=== PATIENT | female | born 1940 | race Caucasian/White ===

== ENCOUNTER → 2017-07-30 | Outpatient (CLI) | payer MEDICARE, BC ==
[2017-07-30 16:01] LABS: CH 28.2; CHCM 31.4; HCT 48.2 % (34.0-46.0); HDW 2.26; HGB 14.9 gm/dL (11.4-16.0); MCHC 30.9 g/dL (31.0-37.0); MCV 90.4 fL (80.0-100.0); Mean Platelet Volume 7.4; RBC 5.33 m/uL (3.80-5.40); RDW 12.9 % (11.5-15.5); WBC 7.5 k/uL (3.8-10.6)
[2017-07-30 16:26] LABS: ALT 35 U/L (9-52); AST 18 U/L (14-36); Alkaline Phosphatase 76 U/L (38-126); Anion Gap 11 mmol/L; Blood Urea Nitrogen 14 mg/dL (7-17); Calcium 9.7 mg/dL (8.4-10.2); Carbon Dioxide 28 mmol/L (22-30); Chloride 100 mmol/L (98-107); Glucose 124 mg/dL (74-99); Non-African American GFR(MDRD) >60 (>60 ml/min/1.73 sqM); Potassium 4.7 mmol/L (3.5-5.1); Sodium 139 mmol/L (137-145); Total Bilirubin 0.6 mg/dL (0.2-1.3); Total Protein 7.3 g/dL (6.3-8.2)
== END | disposition home or self-care (01) ==
LOC: LABWHC1 14:31
PROVIDERS: ATTEND Internal Medicine
DX: E55.9 Vitamin D deficiency, unspecified (principal); E03.9 Hypothyroidism, unspecified; I10 Essential (primary) hypertension
CPT/HCPCS: 36415; 80053; 82306; 84443; 85027

== ENCOUNTER → 2018-12-29 | Outpatient (CLI) | payer MEDICARE | END | disposition home or self-care (01) | LOC: LABWHC1 11:32 | PROVIDERS: ATTEND Physician Assistant | DX: S92.514A Nondisplaced fracture of proximal phalanx of right lesser toe(s), initial encounter for closed fracture (principal); M79.671 Pain in right foot | CPT/HCPCS: 36415; 82306 ==

== ENCOUNTER → 2019-10-13 | Outpatient (CLI) | payer MEDICARE ==
[2019-10-13 12:28] LABS: HCT 46.2 % (34.0-46.0); HGB 14.5 gm/dL (11.4-16.0); MCH 27.7 pg (25.0-35.0); MCHC 31.3 g/dL (31.0-37.0); MCV 88.6 fL (80.0-100.0); Mean Platelet Volume 8.1; Platelet Count 245 k/uL (150-450); RBC 5.21 m/uL (3.80-5.40); RDW 13.2 % (11.5-15.5); WBC 7.4 k/uL (3.8-10.6)
[2019-10-13 19:02] LABS: African American GFR (CKD) 81.8 (60.0-200.0); Albumin 4.4 g/dL (3.80-4.90); Albumin/Globulin Ratio 2.1 (1.60-3.17); Anion Gap 7.1 mmol/L (4.00-12.00); BUN/Creat Ratio 17.5 Ratio (12.00-20.00); Calcium 9.6 mg/dL (8.7-10.3); Carbon Dioxide 27.9 mmol/L (21.6-31.8); Chol/HDL Ratio 3.33; Globulin 2.1 g/dL (1.6-3.3); LDL Cholesterol,Calculated 106.2 mg/dL (0.0-131.0); Non-African American GFR(CKD) 70.6 (60.0-200.0); Potassium 4.1 mmol/L (3.5-5.5); Total Bilirubin 0.6 mg/dL (0.2-1.2); Total Protein 6.5 g/dL (6.2-8.2); VLDL Calculation 19.8 mg/dL (5.00-40.00)
== END | disposition home or self-care (01) ==
LOC: LABWHC1 11:40
PROVIDERS: ATTEND Internal Medicine
DX: I10 Essential (primary) hypertension (principal); E03.9 Hypothyroidism, unspecified; E55.9 Vitamin D deficiency, unspecified
CPT/HCPCS: 36415; 80053; 80061; 82306; 84443; 85027

== ENCOUNTER 2019-11-07 19:22 | Emergency (ER) | payer MEDICARE ==
--- NOTE | 2019-11-07 19:48 | ED ---
General Adult HPI - General Chief complaint: Dizziness Stated complaint: Dizziness Time Seen by Provider: 11/07/19 19:47 Source: patient, family Mode of arrival: wheelchair Limitations: no limitations - History of Present Illness Initial comments: Patient presents the ED with her son for evaluation. Patient states that she has a history of vertigo, and she states that she has felt dizzy for the past 4 days ago. Patient states that her dizziness began suddenly after rolling over in bed. Patient states that her dizziness is worse with movement and changes in position. Patient also states that she has been nauseated. Patient states that she has had a posterior headache today as well. Patient also states that she feels quite anxious. Patient denies trauma or injury, sudden onset of headache, LOC, neck pain or stiffness, fever or chills, focal numbness/weakness/neuro deficit, visual changes, speech problems, chest pain, dyspnea, palpitations, syncope, abdominal pain, nausea/vomiting/diarrhea, bloody or melanotic stool, dysuria or urinary symptoms, or any other symptoms or complaints. - Related Data Home Medications Medication Instructions Recorded Confirmed Aspirin EC [Ecotrin Low Dose] 81 mg PO DAILY PRN 08/19/17 08/19/17 Ergocalciferol (Vitamin D2) 50,000 unit PO HAAS 08/19/17 08/19/17 [Vitamin D2] Lisinopril [Zestril] 20 mg PO BID 08/19/17 08/19/17 Omeprazole [PriLOSEC] 40 mg PO DAILY 08/19/17 08/19/17 Previous Rx's Medication Instructions Recorded Meclizine [Antivert] 25 mg PO TID PRN #12 tab 11/08/19 Ondansetron Odt [Zofran ODT] 4 mg PO Q8HR PRN #10 tab 11/08/19 Allergies Allergy/AdvReac Type Severity Reaction Status Date / Time iodine Allergy Rash/Hives Verified 11/07/19 19:31 Sulfa (Sulfonamide Allergy Rash/Hives Verified 11/07/19 19:31 Antibiotics) Review of Systems ROS Statement: Those systems with pertinent positive or pertinent negative responses have been documented in the HPI. ROS Other: All systems not noted in ROS Statement are negative. Past Medical History Past Medical History: GERD/Reflux, Hypertension, Osteoarthritis (OA) Additional Past Medical History / Comment(s): vitamin D Deficiency, Anemia History of Any Multi-Drug Resistant Organisms: None Reported Past Surgical History: Hysterectomy Past Psychological History: Anxiety Smoking Status: Never smoker Past Alcohol Use History: None Reported Past Drug Use History: None Reported General Exam Limitations: no limitations General appearance: alert, in no apparent distress Head exam: Present: atraumatic, normocephalic Eye exam: Present: normal appearance, PERRL, EOMI. Absent: nystagmus ENT exam: Present: mucous membranes moist Neck exam: Present: other (Trachea is in midline). Absent: tenderness, meningismus Respiratory exam: Present: normal lung sounds bilaterally. Absent: respiratory distress, wheezes, rales, rhonchi Cardiovascular Exam: Present: regular rate, normal rhythm, normal heart sounds, other (Normal radial pulses bilaterally) GI/Abdominal exam: Present: soft. Absent: distended, tenderness Extremities exam: Present: full ROM. Absent: tenderness, pedal edema, calf tenderness Neurological exam: Present: alert, oriented X3, CN II-XII intact. Absent: motor sensory deficit Psychiatric exam: Present: anxious Skin exam: Present: warm, dry, intact, normal color Course Vital Signs 11/07/19 11/07/19 11/07/19 19:31 21:22 21:32 Temperature 98.4 F Pulse Rate 111 H 93 90 Respiratory 16 16 18 Rate Blood Pressure 187/119 170/101 157/93 O2 Sat by Pulse 99 97 95 Oximetry 11/07/19 11/07/19 11/07/19 21:33 22:25 23:29 Temperature 97.9 F Pulse Rate 74 97 Respiratory 16 18 18 Rate Blood Pressure 157/93 155/107 145/97 O2 Sat by Pulse 99 97 Oximetry 11/08/19 00:00 Temperature Pulse Rate Respiratory 18 Rate Blood Pressure O2 Sat by Pulse Oximetry - Reevaluation(s) Reevaluation #1: 11/08/19 00:20 Patient states that her headache and dizziness have improved with ED treatment, and she denies development of any new symptoms while in the ED. Patient remains alert and breathing comfortably. Patient has a nonfocal neurological exam. Patient's labs and head CT are fairly unremarkable. I suspect that the patient's symptoms are likely secondary to positional vertigo. I have discussed the option to admit the patient to the hospital for further evaluation and care, but patient declined hospital admission, and states that she wishes to go home at this time. Patient was counseled about headaches and vertigo/dizziness. Patient was clearly explained return and follow-up instructions. She was instruc misael to return to the ED should she develop new or worsening symptoms. She was also instructed to follow up closely with her primary care provider. She feels comfortable with this plan. Patient's son to take her home tonight. EKG Findings - EKG Comments: EKG Findings:: Normal sinus rhythm, no ectopy, ventricular rate of 96 bpm, no rmal MA and QRS intervals, normal QT interval, normal axis, voltage criteria for LVH, nonspecific ST of abnormality Medical Decision Making - Lab Data Result diagrams: 11/07/19 20:10 11/07/19 20:10 Lab Results 11/07/19 11/07/19 11/07/19 Range/Units 20:10 20:10 20:10 WBC 9.2 (3.8-10.6) k/uL RBC 5.70 H (3.80-5.40) m/uL Hgb 16.0 (11.4-16.0) gm/dL Hct 49.1 H (34.0-46.0) % MCV 86.1 (80.0-100.0) fL MCH 28.1 (25.0-35.0) pg MCHC 32.6 (31.0-37.0) g/dL RDW 12.9 (11.5-15.5) % Plt Count 284 (150-450) k/uL Neutrophils % 70 % Lymphocytes % 21 % Monocytes % 4 % Eosinophils % 2 % Basophils % 1 % Neutrophils # 6.5 (1.3-7.7) k/uL Lymphocytes # 1.9 (1.0-4.8) k/uL Monocytes # 0.4 (0-1.0) k/uL Eosinophils # 0.2 (0-0.7) k/uL Basophils # 0.1 (0-0.2) k/uL PT (9.0-12.0) sec INR (<1.2) APTT (22.0-30.0) sec Sodium 136 L (137-145) mmol/L Potassium 4.2 (3.5-5.1) mmol/L Chloride 100 (98-107) mmol/L Carbon Dioxide 26 (22-30) mmol/L Anion Gap 10 mmol/L BUN 10 (7-17) mg/dL Creatinine 0.73 (0.52-1.04) mg/dL Est GFR (CKD-EPI)AfAm >90 (>60 ml/min/1.73 sqM) Est GFR (CKD-EPI)NonAf 79 (>60 ml/min/1.73 sqM) Glucose 99 (74-99) mg/dL Calcium 10.0 (8.4-10.2) mg/dL Total Bilirubin 0.7 (0.2-1.3) mg/dL AST 21 (14-36) U/L ALT 17 (4-34) U/L Alkaline Phosphatase 85 (38-126) U/L Troponin I <0.012 (0.000-0.034) ng/mL Total Protein 7.9 (6.3-8.2) g/dL Albumin 4.7 (3.5-5.0) g/dL Urine Color Urine Appearance (Clear) Urine pH (5.0-8.0) Ur Specific [place] (1.001-1.035) Urine Protein (Negative) Urine Glucose (UA) (Negative) Urine Ketones (Negative) Urine Blood (Negative) Urine Nitrite (Negative) Urine Bilirubin (Negative) Urine Urobilinogen (<2.0) mg/dL Ur Leukocyte Esterase (Negative) Urine RBC (0-5) /hpf Urine WBC (0-5) /hpf Ur Squamous Epith Cells (0-4) /hpf Amorphous Sediment (None) /hpf Urine Bacteria (None) /hpf Urine Mucus (None) /hpf 11/07/19 11/07/19 Range/Units 20:10 21:30 WBC (3.8-10.6) k/uL RBC (3.80-5.40) m/uL Hgb (11.4-16.0) gm/dL Hct (34.0-46.0) % MCV (80.0-100.0) fL MCH (25.0-35.0) pg MCHC (31.0-37.0) g/dL RDW (11.5-15.5) % Plt Count (150-450) k/uL Neutrophils % % Lymphocytes % % Monocytes % % Eosinophils % % Basophils % % Neutrophils # (1.3-7.7) k/uL Lymphocytes # (1.0-4.8) k/uL Monocytes # (0-1.0) k/uL Eosinophils # (0-0.7) k/uL Basophils # (0-0.2) k/uL PT 10.2 (9.0-12.0) sec INR 1.0 (<1.2) APTT 24.5 (22.0-30.0) sec Sodium (137-145) mmol/L Potassium (3.5-5.1) mmol/L Chloride (98-107) mmol/L Carbon Dioxide (22-30) mmol/L Anion Gap mmol/L BUN (7-17) mg/dL Creatinine (0.52-1.04) mg/dL Est GFR (CKD-EPI)AfAm (>60 ml/min/1.73 sqM) Est GFR (CKD-EPI)NonAf (>60 ml/min/1.73 sqM) Glucose (74-99) mg/dL Calcium (8.4-10.2) mg/dL Total Bilirubin (0.2-1.3) mg/dL AST (14-36) U/L ALT (4-34) U/L Alkaline Phosphatase (38-126) U/L Troponin I (0.000-0.034) ng/mL Total Protein (6.3-8.2) g/dL Albumin (3.5-5.0) g/dL Urine Color Colorless Urine Appearance Clear (Clear) Urine pH 7.5 (5.0-8.0) Ur Specific [place] 1.004 (1.001-1.035) Urine Protein Negative (Negative) Urine Glucose (UA) Negative (Negative) Urine Ketones Negative (Negative) Urine Blood Negative (Negative) Urine Nitrite Negative (Negative) Urine Bilirubin Negative (Negative) Urine Urobilinogen <2.0 (<2.0) mg/dL Ur Leukocyte Esterase Moderate H (Negative) Urine RBC 4 (0-5) /hpf Urine WBC 34 H (0-5) /hpf Ur Squamous Epith Cells 7 H (0-4) /hpf Amorphous Sediment Rare H (None) /hpf Urine Bacteria Few H (None) /hpf Urine Mucus Rare H (None) /hpf - Radiology Data Radiology results: report reviewed (Noncontrast head CT shows no acute intracranial abnormality) Disposition Clinical Impression: Dizziness, Headache Disposition: HOME SELF-CARE Condition: Stable Instructions (If sedation given, give patient instructions): Tension Headache (ED), Vertigo (ED), Dizziness (ED) Additional Instructions: Return to the ER immediately should you develop new or worsening pain, increased dizziness, fainting, numbness or weakness, speech or vision problems, chest pain, shortness of breath, a fever, vomiting, or new or worsening symptoms. Follow up closely with your primary care provider. Prescriptions: Meclizine [Antivert] 25 mg PO TID PRN #12 tab PRN Reason: dizziness Ondansetron Odt [Zofran ODT] 4 mg PO Q8HR PRN #10 tab PRN Reason: Nausea Is patient prescribed a controlled substance at d/c from ED?: No Referrals: Ponce Campa MD [Primary Care Provider] - 1-2 days Time of Disposition: 00:22
[2019-11-07] MEDS ORDERED: ONDANSETRON 4 MG/2 ML VIAL IVP STA (19:57)
[2019-11-07] MEDS ORDERED: SODIUM CHLORIDE 0.9% 500 ML 500 ML IV STA (19:57)
[2019-11-07] MEDS ORDERED: LORazepam 2 MG/ML INJ IV STA (19:57)
[2019-11-07] MEDS ORDERED: MECLIZINE 12.5 MG TAB PO STA (19:57)
[2019-11-07 20:22] LABS: Basophils # (A) 0.1 k/uL (0-0.2); Basophils % (A) 1 %; Eosinophils # (A) 0.2 k/uL (0-0.7); Eosinophils % (A) 2 %; HCT 49.1 % (34.0-46.0); Lymphocytes # (A) 1.9 k/uL (1.0-4.8); Lymphocytes % (A) 21 %; MCH 28.1 pg (25.0-35.0); MCHC 32.6 g/dL (31.0-37.0); MCV 86.1 fL (80.0-100.0); Mean Platelet Volume 7.7; Monocytes # (A) 0.4 k/uL (0-1.0); Monocytes % (A) 4 %; Neutrophils # (A) 6.5 k/uL (1.3-7.7); Neutrophils % (A) 70 %; Platelet Count 284 k/uL (150-450); RDW 12.9 % (11.5-15.5); WBC 9.2 k/uL (3.8-10.6)
[2019-11-07 20:30] LABS: ALT 17 U/L (4-34); AST 21 U/L (14-36); African American GFR (CKD) >90 (>60 ml/min/1.73 sqM); Albumin 4.7 g/dL (3.5-5.0); Alkaline Phosphatase 85 U/L (38-126); Anion Gap 10 mmol/L; Blood Urea Nitrogen 10 mg/dL (7-17); Carbon Dioxide 26 mmol/L (22-30); Chloride 100 mmol/L (98-107); Glucose 99 mg/dL (74-99); Non-African American GFR(CKD) 79 (>60 ml/min/1.73 sqM); Potassium 4.2 mmol/L (3.5-5.1); Sodium 136 mmol/L (137-145); Total Bilirubin 0.7 mg/dL (0.2-1.3); Total Protein 7.9 g/dL (6.3-8.2)
[2019-11-07 20:38] LABS: Partial Thromboplastin Time 24.5 sec (22.0-30.0); Prothrombin Time 10.2 sec (9.0-12.0)
--- NOTE | 2019-11-07 20:45 | CT ---
EXAMINATION TYPE: CT brain wo con DATE OF EXAM: 11/07/2019 COMPARISON: 03/14/2012 HISTORY: Dizziness CT DLP: 1121.4 mGycm Automated exposure control for dose reduction was used. Exam performed with no contrast. There is cerebral cortical atrophy. There is no mass effect nor midline shift. There is no sign of in tracranial hemorrhage. The calvarium is intact. IMPRESSION: Cerebral atrophy. No acute intracranial abnormality. No adverse change.
[2019-11-07 21:47] LABS: Amorphous Sediment,Urine Rare /hpf; Appearance,Urine Clear (Clear); Bacteria,Urine Few /hpf; Bilirubin,Urine Negative (Negative); Blood,Urine Negative (Negative); Color,Urine Colorless; Glucose,Urine (UA) Negative (Negative); Ketones,Urine Negative (Negative); Leukocyte Esterase,Urine Moderate (Negative); Mucus,Urine Rare /hpf; Nitrite,Urine Negative (Negative); PH, Urine 7.5 (5.0-8.0); Protein,Urine Negative (Negative); RBC,Urine 4 /hpf (0-5); Specific Gravity,Urine 1.004 (1.001-1.035); Squamous Epithelial Cell,Urine 7 /hpf (0-4); Urobilinogen,Urine <2.0 mg/dL (<2.0); WBC,Urine 34 /hpf (0-5)
[2019-11-07 22:26] VITALS: RESP 18
[2019-11-07] MEDS ORDERED: METOCLOPRAMIDE 5 MG/ML 2 ML VIAL IVP STA (23:21)
[2019-11-07] MEDS ORDERED: diphenhydrAMINE 50 MG/ML 1 ML VIAL IVP STA (23:22)
[2019-11-07 23:31] VITALS: BP 145/97; PULSE 97; TEMP 97.9
[2019-11-08] MEDS ORDERED: VANCOMYCIN IV PER PHARMACY 1 EACH MISC MISCELLANE STA (00:27)
[2019-11-08] MEDS ORDERED: PIPERACILLIN-TAZOBACTAM 4.5 GM in SODIUM CHLORIDE 0.9% 100 ML IVPB STA (00:27)
== END 2019-11-08 00:37 | disposition home or self-care (01) ==
LOC: EC 19:22
DX: R42 Dizziness and giddiness (principal); R51 Headache; R11.0 Nausea; K21.9 Gastro-esophageal reflux disease without esophagitis; I10 Essential (primary) hypertension; Z79.899 Other long term (current) drug therapy; Z91.048 Other nonmedicinal substance allergy status; Z88.2 Allergy status to sulfonamides
CPT/HCPCS: 36415; 93005; 80053; 84484; 85025; 85610; 85730; 81001; 87086; 70450; 99284; 96374; 96375 ×3; J2060; J1200; J2765; J2405

== ENCOUNTER 2020-03-24 13:09 | Inpatient (IN) | payer MEDICARE ==
[2020-03-24] MEDS ORDERED: HYDROmorphone 0.5 MG/0.5 ML SYRINGE IVP STA (13:18)
[2020-03-24] MEDS ORDERED: SODIUM CHLORIDE 0.9% 1,000 ML IV STA (13:18)
[2020-03-24] MEDS ORDERED: DIPH,PERTUS(ACELL)TETVAC-LF 0.5 ML VIAL IM ONE (13:19)
[2020-03-24 13:47] LABS: Basophils # (A) 0.1 k/uL (0-0.2); Basophils % (A) 0 %; Eosinophils # (A) 0.2 k/uL (0-0.7); Eosinophils % (A) 1 %; HCT 42.7 % (34.0-46.0); HGB 13.4 gm/dL (11.4-16.0); Lymphocytes # (A) 1.8 k/uL (1.0-4.8); Lymphocytes % (A) 13 %; MCH 27.3 pg (25.0-35.0); MCHC 31.4 g/dL (31.0-37.0); MCV 86.8 fL (80.0-100.0); Mean Platelet Volume 8.1; Monocytes # (A) 0.8 k/uL (0-1.0); Monocytes % (A) 5 %; Neutrophils # (A) 10.7 k/uL (1.3-7.7); Neutrophils % (A) 77 %; Platelet Count 285 k/uL (150-450); RBC 4.92 m/uL (3.80-5.40); RDW 13.1 % (11.5-15.5); WBC 13.9 k/uL (3.8-10.6)
--- NOTE | 2020-03-24 13:54 | ED ---
General Adult HPI - General Chief complaint: Fall Stated complaint: Fall Time Seen by Provider: 03/24/20 13:12 Source: patient, EMS, RN notes reviewed, old records reviewed Mode of arrival: EMS Limitations: no limitations - History of Present Illness Initial comments: 79-year-old female who lives alone presents for evaluation status post fall which occurred 4 days ago. Patient tripped on an electrical cord and fell onto her porch. She fell onto her right side. There was no loss of consciousness, minor head injury. She was transported by EMS, given fentanyl and IV fluids. There was significant ecchymosis noted to the right shoulder and upper arm as well as the right knee. Patient was unable to stand or ambulate after the fall. She denies nausea vomiting. Denies fever. She is alert and oriented 3. - Related Data Home Medications Medication Instructions Recorded Confirmed Lisinopril [Zestril] 20 mg PO BID 08/19/17 08/19/17 Omeprazole [PriLOSEC] 40 mg PO DAILY 08/19/17 08/19/17 Allergies Allergy/AdvReac Type Severity Reaction Status Date / Time iodine Allergy Rash/Hives Verified 03/24/20 14:40 Sulfa (Sulfonamide Allergy Rash/Hives Verified 03/24/20 14:40 Antibiotics) Review of Systems ROS Statement: Those systems with pertinent positive or pertinent negative responses have been documented in the HPI. ROS Other: All systems not noted in ROS Statement are negative. Past Medical History Past Medical History: GERD/Reflux, Hypertension, Osteoarthritis (OA) Additional Past Medical History / Comment(s): vitamin D Deficiency, Anemia History of Any Multi-Drug Resistant Organisms: None Reported Past Surgical History: Hysterectomy Past Psychological History: Anxiety Smoking Status: Never smoker Past Alcohol Use History: None Reported Past Drug Use History: None Reported General Exam Limitations: no limitations General appearance: alert Head exam: Present: other (Right periorbital ecchymosis and abrasion) Eye exam: Present: PERRL, periorbital swelling, periorbital tenderness ENT exam: Present: mucous membranes dry Neck exam: Present: normal inspection. Absent: tenderness, meningismus Respiratory exam: Present: normal lung sounds bilaterally. Absent: respiratory distress, wheezes Cardiovascular Exam: Present: regular rate, normal rhythm GI/Abdominal exam: Present: soft. Absent: distended, tenderness Extremities exam: Present: other (Significant ecchymosis of the right shoulder and upper arm, distal pulses intact, she has abrasion and ecchymosis to the right knee.) Neurological exam: Present: alert, oriented X3, CN II-XII intact. Absent: motor sensory deficit Psychiatric exam: Present: normal affect, normal mood Skin exam: Present: dry Course Vital Signs 03/24/20 13:31 Temperature 98 F Pulse Rate 93 Respiratory 18 Rate Blood Pressure 158/98 O2 Sat by Pulse 100 Oximetry EKG Findings - EKG Comments: EKG Findings:: EKG: Normal sinus rhythm, LVH depression ST segment depression in the lateral precordial leads, no ST segment elevation, rate of 95, NE interval 152, QRS duration 62, QTC 457 Medical Decision Making - Medical Decision Making 79-year-old female status post fall which occurred 4 days ago. Exam she has significant pain with range of motion right upper extremity, ecchymosis throughout the shoulder and arm. Distal pulses intact. She is weak throughout. Head CT is performed negative for intracranial hemorrhage, CT cervical spine shows degenerative changes with no acute fracture subluxation. X-ray of the knee is negative for any acute bony or melena, chest x-ray negative for acute cardiopulmonary disease. Patient has mild leukocytosis, normal electrolytes, normal kidney function, creatinine kinase is mildly elevated 700. Urinalysis is pending. Case discussed with Dr. Stearns who will admit with orthopedics on consult. - Lab Data Result diagrams: 03/24/20 13:25 03/24/20 13:25 Lab Results 03/24/20 03/24/20 03/24/20 Range/Units 13:25 13:25 13:25 WBC 13.9 H (3.8-10.6) k/uL RBC 4.92 (3.80-5.40) m/uL Hgb 13.4 (11.4-16.0) gm/dL Hct 42.7 (34.0-46.0) % MCV 86.8 (80.0-100.0) fL MCH 27.3 (25.0-35.0) pg MCHC 31.4 (31.0-37.0) g/dL RDW 13.1 (11.5-15.5) % Plt Count 285 (150-450) k/uL Neutrophils % 77 % Lymphocytes % 13 % Monocytes % 5 % Eosinophils % 1 % Basophils % 0 % Neutrophils # 10.7 H (1.3-7.7) k/uL Lymphocytes # 1.8 (1.0-4.8) k/uL Monocytes # 0.8 (0-1.0) k/uL Eosinophils # 0.2 (0-0.7) k/uL Basophils # 0.1 (0-0.2) k/uL PT 10.7 (9.0-12.0) sec INR 1.0 (<1.2) APTT 25.0 (22.0-30.0) sec Sodium 135 L (137-145) mmol/L Potassium 4.2 (3.5-5.1) mmol/L Chloride 104 (98-107) mmol/L Carbon Dioxide 21 L (22-30) mmol/L Anion Gap 10 mmol/L BUN 24 H (7-17) mg/dL Creatinine 0.60 (0.52-1.04) mg/dL Est GFR (CKD-EPI)AfAm >90 (>60 ml/min/1.73 sqM) Est GFR (CKD-EPI)NonAf 87 (>60 ml/min/1.73 sqM) Glucose 98 (74-99) mg/dL Plasma Lactic Acid Adolfo (0.7-2.0) mmol/L Calcium 9.0 (8.4-10.2) mg/dL Magnesium 2.1 (1.6-2.3) mg/dL Total Bilirubin 1.6 H (0.2-1.3) mg/dL AST 44 H (14-36) U/L ALT 29 (4-34) U/L Alkaline Phosphatase 51 (38-126) U/L Creatine Kinase 706 H (30-135) U/L Total Protein 6.3 (6.3-8.2) g/dL Albumin 3.6 (3.5-5.0) g/dL 03/24/20 Range/Units 13:25 WBC (3.8-10.6) k/uL RBC (3.80-5.40) m/uL Hgb (11.4-16.0) gm/dL Hct (34.0-46.0) % MCV (80.0-100.0) fL MCH (25.0-35.0) pg MCHC (31.0-37.0) g/dL RDW (11.5-15.5) % Plt Count (150-450) k/uL Neutrophils % % Lymphocytes % % Monocytes % % Eosinophils % % Basophils % % Neutrophils # (1.3-7.7) k/uL Lymphocytes # (1.0-4.8) k/uL Monocytes # (0-1.0) k/uL Eosinophils # (0-0.7) k/uL Basophils # (0-0.2) k/uL PT (9.0-12.0) sec INR (<1.2) APTT (22.0-30.0) sec Sodium (137-145) mmol/L Potassium (3.5-5.1) mmol/L Chloride (98-107) mmol/L Carbon Dioxide (22-30) mmol/L Anion Gap mmol/L BUN (7-17) mg/dL Creatinine (0.52-1.04) mg/dL Est GFR (CKD-EPI)AfAm (>60 ml/min/1.73 sqM) Est GFR (CKD-EPI)NonAf (>60 ml/min/1.73 sqM) Glucose (74-99) mg/dL Plasma Lactic Acid Adolfo 1.3 (0.7-2.0) mmol/L Calcium (8.4-10.2) mg/dL Magnesium (1.6-2.3) mg/dL Total Bilirubin (0.2-1.3) mg/dL AST (14-36) U/L ALT (4-34) U/L Alkaline Phosphatase (38-126) U/L Creatine Kinase (30-135) U/L Total Protein (6.3-8.2) g/dL Albumin (3.5-5.0) g/dL Disposition Clinical Impression: Fall, Rhabdomyolysis, Humeral head fracture, Dehydration Disposition: ADMITTED IP TO THIS [facility] Condition: Stable Is patient prescribed a controlled substance at d/c from ED?: No Referrals: Ponce Campa MD [Primary Care Provider] - 1-2 days Decision to Admit Reason: Admit from EC Decision Date: 03/24/20 Decision Time: 14:59
[2020-03-24 13:56] LABS: Prothrombin Time 10.7 sec (9.0-12.0)
[2020-03-24 14:10] LABS: ALT 29 U/L (4-34); African American GFR (CKD) >90 (>60 ml/min/1.73 sqM); Anion Gap 10 mmol/L; Blood Urea Nitrogen 24 mg/dL (7-17); Carbon Dioxide 21 mmol/L (22-30); Chloride 104 mmol/L (98-107); Creatine Kinase 706 U/L (30-135); Glucose 98 mg/dL (74-99); Non-African American GFR(CKD) 87 (>60 ml/min/1.73 sqM); Sodium 135 mmol/L (137-145); Total Bilirubin 1.6 mg/dL (0.2-1.3)
[2020-03-24 14:15] LABS: AST 44 U/L (14-36); Magnesium 2.1 mg/dL (1.6-2.3); Potassium 4.2 mmol/L (3.5-5.1)
[2020-03-24 14:16] LABS: Albumin 3.6 g/dL (3.5-5.0); Alkaline Phosphatase 51 U/L (38-126); Total Protein 6.3 g/dL (6.3-8.2)
--- NOTE | 2020-03-24 14:33 | CT ---
EXAMINATION TYPE: CT brain adanine wo con DATE OF EXAM: 03/24/2020 COMPARISON: 11/07/2019 HISTORY: Fall CT DLP: 1612.9 mGycm Automated exposure control for dose reduction was used. TECHNIQUE: CT scan of the head and cervical spine are performed without contrast. FINDINGS: There is no acute intracranial hemorrhage, mass effect, or midline shift identified. Mild generalized degenerative change. Low-attenuation the white matter nonspecific but most typical remot e microvascular ischemia. Calcification the fourth ventricle incidentally noted. Atherosclerotic dixon ge of the vasculature. Changes of chronic sinusitis. Assessment spinal canal limited due to artifact and resolution. There is severe multilevel degenerati ve disc disease, facet arthropathy and multilevel canal stenosis and ramal encroachment suspected. Od ontoid intact. Prevertebral soft tissue structures are within normal limits. No acute fracture. IMPRESSION: 1. There is no acute fracture or dislocation evident in the cervical spine. Multilevel severe degener ative disc disease recommend follow-up MRI 2. No acute intracranial hemorrhage, mass effect, or midline shift is seen. Degenerative and nonspeci fic white matter changes most typical remote microvascular ischemia.
--- NOTE | 2020-03-24 14:39 | XR ---
EXAMINATION TYPE: XR shoulder complete RT DATE OF EXAM: 03/24/2020 CLINICAL HISTORY: pain TECHNIQUE: Three views of the right shoulder are obtained. COMPARISON: None FINDINGS: Impacted and partially comminuted fracture involving the right humeral neck with greater an d lesser trochanteric components. Displaced loose body component subscapular recess. IMPRESSION: 1. As above ICD 10 closed FRACTURE, INITIAL EVALUATION
--- NOTE | 2020-03-24 14:40 | XR ---
EXAMINATION TYPE: XR chest 1V portable DATE OF EXAM: 03/24/2020 HISTORY: Shortness of breath. COMPARISON: 08/19/2017 TECHNIQUE: Single view of the chest is submitted. Degree of inspiration is limiting. FINDINGS: Demonstrated are scattered senescent parenchymal change. There is no evidence for focal infiltrate. The heart is stable. Hilar and mediastinal structures are within normal limits. Degenerative changes are seen of the dorsal spine. IMPRESSION: 1. Chronic changes without evidence for acute pulmonary disease.
--- NOTE | 2020-03-24 14:41 | XR ---
EXAMINATION TYPE: XR knee complete RT DATE OF EXAM: 03/24/2020 CLINICAL HISTORY: pain TECHNIQUE: Three views of the right knee are obtained. COMPARISON: None. FINDINGS: There is no acute fracture/dislocation. The tri-compartment joint spaces appear moderatel y narrowed. The overlying soft tissue appears unremarkable. IMPRESSION: There is no acute fracture or dislocation.ICD 10 NO FRACTURE, INITIAL EVALUATION
[2020-03-24] MEDS ORDERED: HYDROmorphone 1 MG/ML 1 ML SYRINGE IVP STA (14:43)
[2020-03-24] MEDS: SODIUM CHLORIDE 0.9% 1,000 ML IV SCH (14:47)
[2020-03-24] MEDS ORDERED: NALOXONE 0.4 MG/ML 1 ML VIAL IV PRN (14:53)
[2020-03-24] MEDS ORDERED: ACETAMINOPHEN TAB 325 MG TAB PO PRN (14:53)
[2020-03-24 15:40] LABS: Appearance,Urine Clear (Clear); Bacteria,Urine Rare /hpf; Bilirubin,Urine 1+ (Negative); Blood,Urine Trace (Negative); Color,Urine Yellow; Glucose,Urine (UA) Negative (Negative); Ketones,Urine 3+ (Negative); Leukocyte Esterase,Urine Negative (Negative); Mucus,Urine Occasional /hpf; Nitrite,Urine Negative (Negative); PH, Urine 5.5 (5.0-8.0); Protein,Urine Trace (Negative); RBC,Urine 3 /hpf (0-5); Specific Gravity,Urine 1.033 (1.001-1.035); Squamous Epithelial Cell,Urine <1 /hpf (0-4); WBC,Urine 1 /hpf (0-5)
[2020-03-24] MEDS: lisinopriL 20 MG TAB PO SCH (20:43)
[2020-03-24] MEDS ORDERED: ENALAPRILAT 1.25 MG/ML 1 ML VIAL IVP PRN (21:13)
--- NOTE | 2020-03-24 22:53 | P.HPIM ---
History of Present Illness H&P Date: 03/24/20 Chief Complaint: Severe dehydration, rhabdomyolysis, generalized weakness, post fall 79-year-old female one of Dr. loyd's patient with past medical history of hypertension, osteoarthritis, GERD and reflex syndrome who live alone at home drip and felt 4 days ago and her portion developed to have severe bruises and ecchymosis on the right shoulder and upper extremity area along with right knee developed to have significant problem ambulating and walking with significant ab normal balance and gait. Patient was not able to stand up and walk to the bathroom today ended up coming to the emergency department by EMS with severe pain and discomfort and mobility problem she was giving IV fluid and fentanyl at the time was seen in the emergency department with elevated CK was diagnosed with mild rhabdomyolysis, blood pressure was mildly low and patient was quite bit dehydrated at the time with mild tachycardia. After hydration she felt slightly but better but continued to have significant problem with ambulating. In response to trauma multiple x-ray were done including right shoulder which showed impacted and partial communicated fracture involving the right humeral neck with the greater and lesser trochanteric component, patient be seen orthopedic might require open versus closed reduction. Otherwise x-ray of the knee failed to show any fracture. X-ray of the chest showed crit chronic a change without acute infection. And x-ray of the C-spine and had show multiple disc disease mostly degenerative disc disease with no major abnormality no intercurrent hemorrhage was seen on CAT scan of the brain. Review of Systems CONSTITUTIONAL: Well-developed no acute respiratory distress. EYES: No icterus sclerae, no conjunctivitis. EARS, NOSE, MOUTH, THROAT, and FACE: No sore throat, lymphadenopathy, carotid bruits or deformity. RESPIRATORY: No SOB cough or wheezes. CARDIOVASCULAR: No CP, Palpitation, PND, Orthopnea, or angina. GASTROINTESTINAL: No Abd pain, Nausea or vomiting, no Diarrhea or constipation, No GI Bleed, no distention or masses. GENITOURINARY: Negative for Hematuria or UTI, no kidney stones. Decrease in urine output INTEGUMENT/BREAST: Significant pain and discomfort with ecchymosis and bruises of the right upper extremity and right knee area... HEMATOLOGIC/LYMPHATIC: Negative for bleed or purpura. MUSCULOSKELTAL: Negative for Myalgia or arthralgia. NEURLOGICAL: No LOC, Sz or syncope, blurred vision dizziness or abnormality severe abnormal balancing gait BEHAVIORAL/PSYCH: Negative. ENDOCRINE: Negative. Past Medical History Past Medical History: GERD/Reflux, Hypertension, Osteoarthritis (OA) Additional Past Medical History / Comment(s): vitamin D Deficiency, Anemia History of Any Multi-Drug Resistant Organisms: None Reported Past Surgical History: Hysterectomy Past Anesthesia/Blood Transfusion Reactions: No Reported Reaction Past Psychological History: Anxiety Smoking Status: Never smoker Past Alcohol Use History: None Reported Past Drug Use History: None Reported - Past Family History Mother Family Medical History: Cancer Medications and Allergies Home Medications Medication Instructions Recorded Confirmed Type Lisinopril [Zestril] 20 mg PO BID 08/19/17 03/24/20 History Omeprazole [PriLOSEC] 40 mg PO DAILY 08/19/17 03/24/20 History Allergies Allergy/AdvReac Type Severity Reaction Status Date / Time iodine Allergy Rash/Hives Verified 03/24/20 14:40 Sulfa (Sulfonamide Allergy Rash/Hives Verified 03/24/20 14:40 Antibiotics) Physical Exam Vitals: Vital Signs Temp Pulse Pulse Resp BP BP Pulse Ox 03/24/20 18:50 97.7 F 86 16 153/92 100 03/24/20 18:07 98.1 F 87 18 145/82 100 03/24/20 16:02 93 18 150/99 100 03/24/20 13:31 98 F 93 18 158/98 100 Intake and Output 03/24/20 03/24/20 03/24/20 06:59 14:59 22:59 Other: Weight 101.514 kg 101.514 kg General Appearance: Alert, cooperative, no distress, appears stated age. Neck HEENT: Supple, no lymphadenopathy, no thyroid enlargement, no carotid bruits. Lungs: Clear to auscultation without crackles or wheezes no rhonchi, no deformity. Chest Wall: Chest wall normal expansion with deep inspiration no tenderness and no deformity was found on exam, no costochondral pain or discomfort. Heart: Regular rate and rhythm, S1, S2 normal, no murmur, rub or gallop. Back: Symmetric, no curvature, ROM normal, no CVA tenderness. Mild bruise on the right side Abdomen: Soft, non-tender, bowel sounds active all four quadrants, no masses, no organomegaly. Extremities: Significant a bruise and trauma on the right knee and the thigh area with mild bruise as well and ecchymosis. Significant ecchymosis and bruise on the shoulder area with slight soreness and decreased mobility of the shoulder. Pulses: 2+ and symmetric. Skin: Skin color, texture, tugor normal, no rashes or lesions. Neurologic: Alert oriented x3 cranial nerves II through XII intact, no motor deficit, positive normal balance and gait. Results CBC & Chem 7: 03/24/20 13:25 03/24/20 13:25 Labs: Abnormal Lab Results - Last 24 Hours (Table) 03/24/20 03/24/20 03/24/20 Range/Units 13:25 13:25 15:12 WBC 13.9 H (3.8-10.6) k/uL Neutrophils # 10.7 H (1.3-7.7) k/uL Sodium 135 L (137-145) mmol/L Carbon Dioxide 21 L (22-30) mmol/L BUN 24 H (7-17) mg/dL Total Bilirubin 1.6 H (0.2-1.3) mg/dL AST 44 H (14-36) U/L Creatine Kinase 706 H (30-135) U/L Urine Protein Trace H (Negative) Urine Ketones 3+ H (Negative) Urine Blood Trace H (Negative) Urine Bilirubin 1+ H (Negative) Urine Bacteria Rare H (None) /hpf Urine Mucus Occasional H (None) /hpf Thrombosis Risk Factor Assmnt - DVT/VTE Prophylaxis DVT/VTE Prophylaxis: Pharmacologic Prophylaxis ordered - Choose All That Apply Each Factor Represents 1 point: Obesity (BMI >25) Each Risk Factor Represents 3 Points: Age 75 years or older Thrombosis Risk Factor Assessment Total Risk Factor Score: 4 Thrombosis Risk Factor Assessment Level: Moderate Risk Assessment and Plan Assessment: 1 severe rhabdomyolysis: Repeat CK continue hydration and continue supportive care patient is hemodynamically stable her blood pressure has improved so far. 2 severe dehydration: Continue hydration with 0.9 normal saline 75 mL an hour through the night keep watching for any fluid overload at this point. 3 post fall with right humerus fracture: We'll consult orthopedic patient might require intervention are might need close reduction and cast. 4 mild leukocytosis: With no sign of infection, most likely from rhabdomyolysis mild trauma and bruise continue to watch symptoms carefully. 5 abnormal liver function tests: With elevated bilirubin and AST not a clear etiology patient might have Gilbert's syndrome and this could be from dehydration and hypoperfusion, continue hydration repeat CMP tomorrow morning. 6 hypertension: Resume lisinopril keep watching for any abnormal kidney function test. 7 severe GERD and GI prophylaxis: Patient will be on omeprazole. 8 DVT prophylaxis: Patient will be on heparin 5000 units subcutaneous twice a day. CODE STATUS: Full code. Admit patient to inpatient service for more than 2 night stay.
[2020-03-25] MEDS: SODIUM CHLORIDE 0.9% 1,000 ML IV SCH ×4 (01:13→22:14)
[2020-03-25] MEDS ORDERED: bisacodyL 5 MG TABLET.DR PO PRN (07:09)
[2020-03-25] MEDS: FAMOTIDINE 20 MG TAB PO SCH (07:32)
[2020-03-25] MEDS: lisinopriL 20 MG TAB PO SCH ×2 (07:32→20:38)
[2020-03-25] MEDS: HEPARIN SODIUM,PORCINE 5,000 UNIT/ML 1 ML VIAL SQ SCH ×2 (07:32→20:39)
[2020-03-25] MEDS: PANTOPRAZOLE 40 MG TABLET PO SCH (07:32)
[2020-03-25] MEDS: HYDROmorphone 0.5 MG/0.5 ML SYRINGE IVP PRN ×2 (07:33→16:17)
[2020-03-25 08:24] LABS: Basophils # (A) 0.1 k/uL (0-0.2); Basophils % (A) 1 %; Eosinophils # (A) 0.3 k/uL (0-0.7); Eosinophils % (A) 3 %; HCT 42.7 % (34.0-46.0); HGB 13.3 gm/dL (11.4-16.0); Lymphocytes # (A) 1.8 k/uL (1.0-4.8); Lymphocytes % (A) 16 %; MCHC 31.2 g/dL (31.0-37.0); MCV 89.6 fL (80.0-100.0); Mean Platelet Volume 8.2; Monocytes # (A) 0.7 k/uL (0-1.0); Monocytes % (A) 6 %; Neutrophils # (A) 8.2 k/uL (1.3-7.7); Neutrophils % (A) 73 %; Platelet Count 261 k/uL (150-450); RBC 4.76 m/uL (3.80-5.40); RDW 13.3 % (11.5-15.5); WBC 11.3 k/uL (3.8-10.6)
[2020-03-25 08:37] LABS: ALT 36 U/L (4-34); AST 40 U/L (14-36); African American GFR (CKD) >90 (>60 ml/min/1.73 sqM); Albumin 3.2 g/dL (3.5-5.0); Alkaline Phosphatase 51 U/L (38-126); Anion Gap 6 mmol/L; Blood Urea Nitrogen 20 mg/dL (7-17); Calcium 8.7 mg/dL (8.4-10.2); Carbon Dioxide 24 mmol/L (22-30); Chloride 106 mmol/L (98-107); Glucose 89 mg/dL (74-99); Non-African American GFR(CKD) 87 (>60 ml/min/1.73 sqM); Potassium 4.1 mmol/L (3.5-5.1); Sodium 136 mmol/L (137-145); Total Bilirubin 1.3 mg/dL (0.2-1.3); Total Protein 5.9 g/dL (6.3-8.2)
--- NOTE | 2020-03-25 09:39 | P.PN ---
Subjective Progress Note Date: 03/25/20 79-year-old female one of Dr. loyd's patient with past medical history of hypertension, osteoarthritis, GERD and reflex syndrome who live alone at home drip and felt 4 days ago and her portion developed to have severe bruises and ecchymosis on the right shoulder and upper extremity area along with right knee developed to have significant problem ambulating and walking with significant abnormal balance and gait. Patient was not able to stand up and walk to the bathroom today ended up coming to the emergency department by EMS with severe pain and discomfort and mobility problem she was giving IV fluid and fentanyl at the time was seen in the emergency department with elevated CK was diagnosed with mild rhabdomyolysis, blood pressure was mildly low and patient was quite bit dehydrated at the time with mild tachycardia. After hydration she felt slightly but better but continued to have significant problem with ambulating. In response to trauma multiple x-ray were done including right shoulder which showed impacted and partial communicated fracture involving the right humeral neck with the greater and lesser trochanteric component, patient be seen orthopedic might require open versus closed reduction. Otherwise x-ray of the knee failed to show any fracture. X-ray of the chest showed crit chronic a change without acute infection. And x-ray of the C-spine and had show multiple disc disease mostly degenerative disc disease with no major abnormality no intercurrent hemorrhage was seen on CAT scan of the brain. 03/25: Patient is resting comfortably in bed. Patient states that her pain is under control. She is complaining of some discomfort to the right flank area however she has not had a bowel movement since Friday. Patient states that she is more coherent and able to answer questions appropriately at this time. Patient has been afebrile overnight. Blood pressure 151/84, respirations 17, heart rate 81, pulse ox 99% on 2 L of O2 via nasal cannula. WC 11.3, hemoglobin 13.3, potassium 4.1, BUN 20, creatinine 0.61, CK 706 yesterday. CK-MB 2.2. Alexander in place. Patient has not been seen by orthopedics at this time. Patient does have a proximal humerus fracture. Review of systems CONSTITUTIONAL: Well-developed no acute respiratory distress. EYES: No icterus sclerae, no conjunctivitis. EARS, NOSE, MOUTH, THROAT, and FACE: No sore throat, lymphadenopathy, carotid bruits or deformity. RESPIRATORY: No SOB cough or wheezes. CARDIOVASCULAR: No CP, Palpitation, PND, Orthopnea, or angina. GASTROINTESTINAL: No Abd pain, Nausea or vomiting, no Diarrhea or constipation, No GI Bleed, no distention or masses. GENITOURINARY: Negative for Hematuria or UTI, no kidney stones. Decrease in urine output INTEGUMENT/BREAST: Significant pain and discomfort with ecchymosis and bruises of the right upper extremity and right knee area... HEMATOLOGIC/LYMPHATIC: Negative for bleed or purpura. MUSCULOSKELTAL: Negative for Myalgia or arthralgia. NEURLOGICAL: No LOC, Sz or syncope, blurred vision dizziness or abnormality severe abnormal balancing gait BEHAVIORAL/PSYCH: Negative. ENDOCRINE: Negative. Objective - Vital Signs Vital signs: Vital Signs Temp 98 F 03/25/20 07:04 Pulse 81 03/25/20 07:04 Resp 17 03/25/20 07:04 BP 151/84 03/25/20 07:04 Pulse Ox 99 03/25/20 07:04 Intake & Output 03/24/20 03/25/20 03/25/20 18:59 06:59 18:59 Intake Total 1350 Output Total 650 Balance 700 Weight 101.514 kg Intake: Intake, IV Titration 1250 Amount Sodium Chloride 0.9% 1, 1250 000 ml @ 125 mls/hr IV . Q8H [facility] Rx#:[id number] Oral 100 Output: Urine 650 - Exam General Appearance: Alert, cooperative, no distress, 79-year-old appears stated age. Neck HEENT: Supple, no lymphadenopathy, no thyroid enlargement, no carotid bruits. Lungs: Clear to auscultation without crackles or wheezes no rhonchi, no deformity. Chest Wall: Chest wall normal expansion with deep inspiration no tenderness and no deformity was found on exam, no costochondral pain or discomfort. Heart: Regular rate and rhythm, S1, S2 normal, no murmur, rub or gallop. Back: Symmetric, no curvature, ROM normal, no CVA tenderness. Mild bruise on the right side Abdomen: Soft, non-tender, bowel sounds active all four quadrants, no masses, no organomegaly. Extremities: Significant a bruise and trauma on the right knee and the thigh area with mild bruise as well and ecchymosis. Significant ecchymosis and bruise on the shoulder area with slight soreness and decreased mobility of the shoulder. Sling in place to right upper extremity ecchymosis and swelling noticed to right side of face including periorbital area. Pulses: 2+ and symmetric. Skin: Skin color, texture, tugor normal, no rashes or lesions. Neurologic: Alert oriented x3 cranial nerves II through XII intact, no motor deficit, positive normal balance and gait. - Labs CBC & Chem 7: 03/25/20 07:46 03/25/20 07:46 Labs: Abnormal Lab Results - Last 24 Hours (Table) 03/24/20 03/24/20 03/24/20 Range/Units 13:25 13:25 15:12 WBC 13.9 H (3.8-10.6) k/uL Neutrophils # 10.7 H (1.3-7.7) k/uL Sodium 135 L (137-145) mmol/L Carbon Dioxide 21 L (22-30) mmol/L BUN 24 H (7-17) mg/dL Total Bilirubin 1.6 H (0.2-1.3) mg/dL AST 44 H (14-36) U/L ALT (4-34) U/L Creatine Kinase 706 H (30-135) U/L Total Protein (6.3-8.2) g/dL Albumin (3.5-5.0) g/dL Urine Protein Trace H (Negative) Urine Ketones 3+ H (Negative) Urine Blood Trace H (Negative) Urine Bilirubin 1+ H (Negative) Urine Bacteria Rare H (None) /hpf Urine Mucus Occasional H (None) /hpf 03/25/20 03/25/20 Range/Units 07:46 07:46 WBC 11.3 H (3.8-10.6) k/uL Neutrophils # 8.2 H (1.3-7.7) k/uL Sodium 136 L (137-145) mmol/L Carbon Dioxide (22-30) mmol/L BUN 20 H (7-17) mg/dL Total Bilirubin (0.2-1.3) mg/dL AST 40 H (14-36) U/L ALT 36 H (4-34) U/L Creatine Kinase (30-135) U/L Total Protein 5.9 L (6.3-8.2) g/dL Albumin 3.2 L (3.5-5.0) g/dL Urine Protein (Negative) Urine Ketones (Negative) Urine Blood (Negative) Urine Bilirubin (Negative) Urine Bacteria (None) /hpf Urine Mucus (None) /hpf Assessment and Plan Plan: 1 severe rhabdomyolysis: Repeat CK continue hydration and continue supportive care patient is hemodynamically stable her blood pressure has improved so far. 2 severe dehydration: Continue hydration with 0.9 normal saline 75 mL an hour through the night keep watching for any fluid overload at this point. 3 post fall with right humerus fracture: We'll consult orthopedic patient might require intervention are might need close reduction and cast. 4 mild leukocytosis: With no sign of infection, most likely from rhabdomyolysis mild trauma and bruise continue to watch symptoms carefully. 5 abnormal liver function tests: With elevated bilirubin and AST not a clear etiology patient might have Gilbert's syndrome and this could be from dehydration and hypoperfusion, continue hydration repeat CMP tomorrow morning. 6 hypertension: Resume lisinopril keep watching for any abnormal kidney function test. 7 severe GERD and GI prophylaxis: Patient will be on omeprazole. 8 DVT prophylaxis: Patient will be on heparin 5000 units subcutaneous twice a day. Discharge plan: Possibly home on Friday, questionable subacute rehab CODE STATUS: Full code. Admit patient to inpatient service for more than 2 night stay. Impression and plan of care have been directed as dictated by the signing physician. Norah Sanchez nurse practitioner acting as scribe for signing physician.
--- NOTE | 2020-03-25 11:46 | P.CNOR ---
History of Present Illness - [facility] Consult date: 03/25/20 Consult reason: fracture History of present illness: Patient is a 79-year-old female who was brought to [facility] yesterday afternoon with regards to an injury involving the left upper extremity and fall. Apparently the patient was out watering her meraz on Friday, when she fell, during the fall she did strike her head and landed on the right side. Patient was unable to get up after the fall, she was not found until 03/24/2020 by a family member. She was immediately brought to [facility] for further evaluation. Patient was admitted under internal medicine, our orthopedic team was consulted. Edges did demonstrate a 3-4 part displaced and comminuted proximal humerus fracture involving the humeral head. The shoulder joint remains located at this time. I did see the patient today on the surgical floor, she is resting comfortably. A basic arm sling is intact, she is icing the shoulder. She does have some discomfort of the right knee and right hip. She also notes some lower back tenderness. She believes this may be related to constipation, it's been over a week since she had her last bowel movement. She denies any pain involving the left upper extremity or left lower extremity. She denies any numbness or tingling of the lower extremities or upper extremity is. Most of the discomfort is in the left shoulder region. 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 She denies any hardware present in the right upper extremity. Review of Systems Constitutional: Reports as per [facility] Past Medical History Past Medical History: GERD/Reflux, Hypertension, Osteoarthritis (OA) Additional Past Medical History / Comment(s): vitamin D Deficiency, Anemia History of Any Multi-Drug Resistant Organisms: None Reported Past Surgical History: Hysterectomy Past Anesthesia/Blood Transfusion Reactions: No Reported Reaction Past Psychological History: Anxiety Smoking Status: Never smoker Past Alcohol Use History: None Reported Past Drug Use History: None Reported - Past Family History Mother Family Medical History: Cancer Medications and Allergies Home Medications Medication Instructions Recorded Confirmed Type Lisinopril [Zestril] 20 mg PO BID 08/19/17 03/24/20 History Omeprazole [PriLOSEC] 40 mg PO DAILY 08/19/17 03/24/20 History Allergies Allergy/AdvReac Type Severity Reaction Status Date / Time iodine Allergy Rash/Hives Verified 03/24/20 14:40 Sulfa (Sulfonamide Allergy Rash/Hives Verified 03/24/20 14:40 Antibiotics) Physical Examination Right upper extremity: Severe ecchymosis and swelling of the right upper arm, patient does have a morbidly obese body habitus. Her sensation to light touch throughout the ex tremities intact, radial pulses 2+. Range of motion was not assessed the shoulder. Basic range of motion of the elbow and wrist were intact, no tenderness with palpation of the elbow, hand and wrist. Right lower extremity: Bruising and small abrasion over the anterior lateral aspect of the knee. She is able to straight leg raise and no difficulty. Calf is soft, no tenderness with palpation. Plantar flexion, dorsiflexion, EHL, FHL are intact. Sensory exam to light touch throughout the extremities intact. Dorsalis pedis pulses 2+ Results - Labs Labs: Abnormal Lab Results - Last 24 Hours (Table) 03/24/20 03/24/20 03/24/20 Range/Units 13:25 13:25 15:12 WBC 13.9 H (3.8-10.6) k/uL Neutrophils # 10.7 H (1.3-7.7) k/uL Sodium 135 L (137-145) mmol/L Carbon Dioxide 21 L (22-30) mmol/L BUN 24 H (7-17) mg/dL Total Bilirubin 1.6 H (0.2-1.3) mg/dL AST 44 H (14-36) U/L ALT (4-34) U/L Creatine Kinase 706 H (30-135) U/L Total Protein (6.3-8.2) g/dL Albumin (3.5-5.0) g/dL Urine Protein Trace H (Negative) Urine Ketones 3+ H (Negative) Urine Blood Trace H (Negative) Urine Bilirubin 1+ H (Negative) Urine Bacteria Rare H (None) /hpf Urine Mucus Occasional H (None) /hpf 03/25/20 03/25/20 Range/Units 07:46 07:46 WBC 11.3 H (3.8-10.6) k/uL Neutrophils # 8.2 H (1.3-7.7) k/uL Sodium 136 L (137-145) mmol/L Carbon Dioxide (22-30) mmol/L BUN 20 H (7-17) mg/dL Total Bilirubin (0.2-1.3) mg/dL AST 40 H (14-36) U/L ALT 36 H (4-34) U/L Creatine Kinase (30-135) U/L Total Protein 5.9 L (6.3-8.2) g/dL Albumin 3.2 L (3.5-5.0) g/dL Urine Protein (Negative) Urine Ketones (Negative) Urine Blood (Negative) Urine Bilirubin (Negative) Urine Bacteria (None) /hpf Urine Mucus (None) /hpf H & H 03/24/20 03/25/20 Range/Units 13:25 07:46 Hgb 13.4 13.3 (11.4-16.0) gm/dL Hct 42.7 42.7 (34.0-46.0) % Coagulation 03/24/20 Range/Units 13:25 INR 1.0 (<1.2) Result Diagrams: 03/25/20 07:46 03/25/20 07:46 Assessment and Plan Assessment: Imaging: X-rays reviewed of the right shoulder. They demonstrated a 3-4 part proximal humerus fracture that involves the humeral head. There is obvious comminution and displacement. The shoulder joint remains located at this time. X-rays of the right knee do demonstrate osteoarthritic signs, including loss of joint space and osteophyte formation. X-rays were ordered of the right hip and pelv is, awaiting results. Assessment: 3/4 part displaced right proximal humerus fracture Right knee osteoarthritis, right knee contusion Multiple medical comorbidities Plan: I was able to discuss the case, including with physical exam findings and imaging studies might any Dr. Aguirre. Surgical intervention will be needed for the fracture involving the right shoulder. I did discuss the case also my other attending Dr. Carmichael regarding this patient, he would like to proceed with a cemented total shoulder replacement, reverse versus standard. Discussed the risk and benefits of the procedure with the patient, I also discussed with her and would reach out to her family and discuss current condition and surgical plan. With the patient's current medical status and being without food or water for multiple days, maximal medical improvement would benefit. Dr. Carmichael would be available for surgery on either or 715, we will determine this in the next few days. Other bilingual medical assistant recommendations Pain control GI and DVT prophylaxis per primary medical service Further recommendations to follow Time with Patient: Less than 30
--- NOTE | 2020-03-25 17:01 | XR ---
EXAMINATION TYPE: XR Hip RT and AP Pelvis DATE OF EXAM: 03/25/2020 COMPARISON: NONE HISTORY: Pain. Fall. TECHNIQUE: 3 views FINDINGS: The pelvic ring is intact. Proximal right femur and hip joint appear intact. Hip joint spac es are fairly normal. Sacroiliac joints appear normal. IMPRESSION: Negative pelvis and right hip exam. No fracture.
[2020-03-26] MEDS: SODIUM CHLORIDE 0.9% 1,000 ML IV SCH ×2 (05:20→12:38)
[2020-03-26 07:31] LABS: Basophils % (A) 0 %; Eosinophils # (A) 0.4 k/uL (0-0.7); Eosinophils % (A) 4 %; HCT 36.8 % (34.0-46.0); HGB 12.2 gm/dL (11.4-16.0); Lymphocytes % (A) 24 %; MCH 29.3 pg (25.0-35.0); MCV 88.6 fL (80.0-100.0); Mean Platelet Volume 8.5; Monocytes # (A) 0.5 k/uL (0-1.0); Monocytes % (A) 6 %; Neutrophils # (A) 5.3 k/uL (1.3-7.7); Neutrophils % (A) 63 %; Platelet Count 244 k/uL (150-450); RBC 4.15 m/uL (3.80-5.40); RDW 13.4 % (11.5-15.5); WBC 8.4 k/uL (3.8-10.6)
[2020-03-26 07:42] LABS: ALT 24 U/L (4-34); AST 22 U/L (14-36); African American GFR (CKD) >90 (>60 ml/min/1.73 sqM); Albumin 2.4 g/dL (3.5-5.0); Alkaline Phosphatase 50 U/L (38-126); Anion Gap 1 mmol/L; Blood Urea Nitrogen 14 mg/dL (7-17); Calcium 8.2 mg/dL (8.4-10.2); Carbon Dioxide 26 mmol/L (22-30); Chloride 108 mmol/L (98-107); Creatine Kinase 132 U/L (30-135); Glucose 107 mg/dL (74-99); Non-African American GFR(CKD) 84 (>60 ml/min/1.73 sqM); Potassium 4.3 mmol/L (3.5-5.1); Sodium 135 mmol/L (137-145); Total Bilirubin 0.7 mg/dL (0.2-1.3); Total Protein 4.6 g/dL (6.3-8.2)
[2020-03-26] MEDS: HYDROmorphone 0.5 MG/0.5 ML SYRINGE IVP PRN ×3 (07:45→21:17)
[2020-03-26] MEDS: PANTOPRAZOLE 40 MG TABLET PO SCH (07:45)
[2020-03-26] MEDS: FAMOTIDINE 20 MG TAB PO SCH (07:45)
[2020-03-26] MEDS: HEPARIN SODIUM,PORCINE 5,000 UNIT/ML 1 ML VIAL SQ SCH ×2 (07:45→21:16)
[2020-03-26] MEDS: lisinopriL 20 MG TAB PO SCH ×2 (07:45→21:16)
--- NOTE | 2020-03-26 09:28 | P.PN ---
Subjective Progress Note Date: 03/26/20 Principal diagnosis: 3/4 part proximal humerus fracture Patient was evaluated today at bedside, she is resting comfortably.She has not been out of bed yet. She did receive the new arm sling, she was fitted for this today in the room by myself. She denies any chest pain or shortness of breath at this time. Plan is for surgery on the right upper extremity later next week. Objective - Vital Signs Vital signs: Vital Signs Temp 98.6 F 03/26/20 07:02 Pulse 95 03/26/20 07:02 Resp 18 03/26/20 07:02 BP 166/93 03/26/20 07:02 Pulse Ox 94 L 03/26/20 07:02 Intake & Output 03/25/20 03/26/20 03/26/20 18:59 06:59 18:59 Intake Total 1000 Output Total 1900 2000 Balance -900 -1999 Intake: IV 1000 Sodium Chloride 0.9% 1, 1000 000 ml @ 125 mls/hr IV . Q8H [facility] Rx#:[id number] Output: Urine 1899 1999 Other: Voiding Method Indwelling Catheter Indwelling Catheter - Exam Right upper extremity: Obvious ecchymosis and soft tissue swelling present. Sensory exam to light touch throughout the extremity is intact. Radial pulses 2+ - Labs CBC & Chem 7: 03/26/20 06:26 03/26/20 06:26 Labs: Abnormal Lab Results - Last 24 Hours (Table) 03/26/20 Range/Units 06:26 Sodium 135 L (137-145) mmol/L Chloride 108 H (98-107) mmol/L Glucose 107 H (74-99) mg/dL Calcium 8.2 L (8.4-10.2) mg/dL Total Protein 4.6 L (6.3-8.2) g/dL Albumin 2.4 L (3.5-5.0) g/dL Assessment and Plan Assessment: Imaging: X-rays were reviewed of the pelvis and right hip, no acute fractures or dislocations appreciated. No other osseous abnormality is. Assessment: 3/4 part displaced right proximal humerus fracture Right knee osteoarthritis, right knee contusion Multiple medical comorbidities Plan: Surgical plan at this point is to proceed with a cemented reverse total shoulder arthroplasty of the right shoulder on neither or 03/29/[address] Carmichael Prior to surgery we will obtain consent Other medical imaging technician recommendations Pain control GI and DVT prophylaxis per primary medical service Physical therapy evaluation We will continue to follow during inpatient stay Time with Patient: Less than 30
--- NOTE | 2020-03-26 09:50 | P.PN ---
Subjective Progress Note Date: 03/26/20 79-year-old female one of Dr. loyd's patient with past medical history of hypertension, osteoarthritis, GERD and reflex syndrome who live alone at home drip and felt 4 days ago and her portion developed to have severe bruises and ecchymosis on the right shoulder and upper extremity area along with right knee developed to have significant problem ambulating and walking with significant abnormal balance and gait. Patient was not able to stand up and walk to the bathroom today ended up coming to the emergency department by EMS with severe pain and discomfort and mobility problem she was giving IV fluid and fentanyl at the time was seen in the emergency department with elevated CK was diagnosed with mild rhabdomyolysis, blood pressure was mildly low and patient was quite bit dehydrated at the time with mild tachycardia. After hydration she felt slightly but better but continued to have significant problem with ambulating. In response to trauma multiple x-ray were done including right shoulder which showed impacted and partial communicated fracture involving the right humeral neck with the greater and lesser trochanteric component, patient be seen orthopedic might require open versus closed reduction. Otherwise x-ray of the knee failed to show any fracture. X-ray of the chest showed crit chronic a change without acute infection. And x-ray of the C-spine and had show multiple disc disease mostly degenerative disc disease with no major abnormality no intercurrent hemorrhage was seen on CAT scan of the brain. 03/25: Patient is resting comfortably in bed. Patient states that her pain is under control. She is complaining of some discomfort to the right flank area however she has not had a bowel movement since Friday. Patient states that she is more coherent and able to answer questions appropriately at this time. Patient has been afebrile overnight. Blood pressure 151/84, respirations 17, heart rate 81, pulse ox 99% on 2 L of O2 via nasal cannula. WC 11.3, hemoglobin 13.3, potassium 4.1, BUN 20, creatinine 0.61, CK 706 yesterday. CK-MB 2.2. Alexander in place. Patient has not been seen by orthopedics at this time. Patient does have a proximal humerus fracture. 03/26/2020: Patient is complaining of constipation and abdominal fullness. Patient states that she has not had a bowel movement for the last few days. She is feeling uncomfortable. Patient is having difficulty with movement related to fracture. Patient was seen by orthopedics who recommends surgical intervention of a cemented reverse total shoulder arthroplasty of the right shoulder on either 03/28 or 03/[address] Smith Patient was fitted with a new arm sling per orthopedics. Patient remains afebrile, blood pressure 166/93, heart rate 95, respirations 18. Labs are within normal limits Review of systems CONSTITUTIONAL: Well-developed no acute respiratory distress. EYES: No icterus sclerae, no conjunctivitis. EARS, NOSE, MOUTH, THROAT, and FACE: No sore throat, lymphadenopathy, carotid bruits or deformity. RESPIRATORY: No SOB cough or wheezes. CARDIOVASCULAR: No CP, Palpitation, PND, Orthopnea, or angina. GASTROINTESTINAL: No Abd pain, Nausea or vomiting, no Diarrhea reports const ipation, No GI Bleed, reports distention no masses. GENITOURINARY: Negative for Hematuria or UTI, no kidney stones. Decrease in urine output INTEGUMENT/BREAST: Significant pain and discomfort with ecchymosis and bruises of the right upper extremity and right knee area... HEMATOLOGIC/LYMPHATIC: Negative for bleed or purpura. MUSCULOSKELTAL: Negative for Myalgia or arthralgia. NEURLOGICAL: No LOC, Sz or syncope, blurred vision dizziness or abnormality severe abnormal balancing gait BEHAVIORAL/PSYCH: Negative. ENDOCRINE: Negative. Objective - Vital Signs Vital signs: Vital Signs Temp 98.6 F 03/26/20 07:02 Pulse 95 03/26/20 07:02 Resp 18 03/26/20 07:02 BP 166/93 03/26/20 07:02 Pulse Ox 94 L 03/26/20 07:02 Intake & Output 03/25/20 03/26/20 03/26/20 18:59 06:59 18:59 Intake Total 1000 Output Total 1900 1999 Balance -900 -1999 Intake: IV 1000 Sodium Chloride 0.9% 1, 1000 000 ml @ 125 mls/hr IV . Q8H [facility] Rx#:[id number] Output: Urine 1899 1999 Other: Voiding Method Indwelling Catheter Indwelling Catheter - Exam General Appearance: Alert, cooperative, no distress, 79-year-old appears stated age. Neck HEENT: Supple, no lymphadenopathy, no thyroid enlargement, no carotid bruits. Lungs: Clear to auscultation without crackles or wheezes no rhonchi, no deformity. Chest Wall: Chest wall normal expansion with deep inspiration no tenderness and no deformity was found on exam, no costochondral pain or discomfort. Heart: Regular rate and rhythm, S1, S2 normal, no murmur, rub or gallop. Back: Symmetric, no curvature, ROM normal, no CVA tenderness. Mild bruise on the right side Abdomen: Soft, non-tender, bowel sounds active all four quadrants, no masses, no organomegaly. Extremities: Significant a bruise and trauma on the right knee and the thigh area with mild bruise as well and ecchymosis. Significant ecchymosis and bruise on the shoulder area with slight soreness and decreased mobility of the shoulder. Sling in place to right upper extremity ecchymosis and swelling noticed to right side of face including periorbital area. Pulses: 2+ and symmetric. Skin: Skin color, texture, tugor normal, no rashes or lesions. Neurologic: Alert oriented x3 cranial nerves II through XII intact, no motor deficit, positive normal balance and gait. - Labs CBC & Chem 7: 03/26/20 06:26 03/26/20 06:26 Labs: Abnormal Lab Results - Last 24 Hours (Table) 03/26/20 Range/Units 06:26 Sodium 135 L (137-145) mmol/L Chloride 108 H (98-107) mmol/L Glucose 107 H (74-99) mg/dL Calcium 8.2 L (8.4-10.2) mg/dL Total Protein 4.6 L (6.3-8.2) g/dL Albumin 2.4 L (3.5-5.0) g/dL Assessment and Plan Plan: 1 severe rhabdomyolysis: Repeat CK 132, continue hydration and continue supportive care patient is hemodynamically stable her blood pressure has improved so far. 2 severe dehydration: Decreased hydration with normal saline to 50 ML's per h our. Continue to monitor for fluid overload. 3 post fall with right humerus fracture: Orthopedic consult appreciated. Recommendation for a cemented reverse total arthroplasty of the right shoulder on 03/28 or 03/[address] Smith. New arm sling fitted per orthopedics 4 mild leukocytosis: With no sign of infection, most likely from rhabdomyolysis mild trauma and bruise continue to watch symptoms carefully. 5 abnormal liver function tests: With elevated bilirubin and AST not a clear etiology patient might have Gilbert's syndrome and this could be from dehydration and hypoperfusion, continue hydration CMP within normal limits 6 hypertension: Resume lisinopril keep watching for any abnormal kidney function test. 7 severe GERD and GI prophylaxis: Patient will be on omeprazole. 8 DVT prophylaxis: Patient will be on heparin 5000 units subcutaneous twice a day. Discharge plan: Possibly subacute rehab CODE STATUS: Full code. Admit patient to inpatient service for more than 2 night stay. Impression and plan of care have been directed as dictated by the signing ph ysician. Norah Sanchez nurse practitioner acting as scribe for signing physician.
[2020-03-26] MEDS: LACTULOSE 20 GM/30 ML CUP PO SCH ×2 (09:54→21:16)
[2020-03-26] MEDS: bisacodyL 5 MG TABLET.DR PO SCH ×2 (09:54→21:17)
[2020-03-27] MEDS: HYDROmorphone 0.5 MG/0.5 ML SYRINGE IVP PRN ×2 (06:14→11:55)
[2020-03-27] MEDS: PANTOPRAZOLE 40 MG TABLET PO SCH (08:02)
[2020-03-27] MEDS: HEPARIN SODIUM,PORCINE 5,000 UNIT/ML 1 ML VIAL SQ SCH ×2 (08:03→20:43)
[2020-03-27] MEDS: FAMOTIDINE 20 MG TAB PO SCH (08:03)
[2020-03-27] MEDS: bisacodyL 5 MG TABLET.DR PO SCH ×2 (08:03→20:43)
[2020-03-27] MEDS: lisinopriL 20 MG TAB PO SCH ×2 (08:03→20:47)
[2020-03-27] MEDS: LACTULOSE 20 GM/30 ML CUP PO SCH ×2 (08:03→20:43)
[2020-03-27] MEDS ORDERED: ARTIFICIAL TEARS-HYPROMELLOSE DROPS 15 ML BTL BOTH EYES PRN (09:02)
--- NOTE | 2020-03-27 15:21 | P.PN ---
Subjective Progress Note Date: 03/27/20 79-year-old female one of Dr. loyd's patient with past medical history of hypertension, osteoarthritis, GERD and reflex syndrome who live alone at home drip and felt 4 days ago and her portion developed to have severe bruises and ecchymosis on the right shoulder and upper extremity area along with right knee developed to have significant problem ambulating and walking with significant abnormal balance and gait. Patient was not able to stand up and walk to the bathroom today ended up coming to the emergency department by EMS with severe pain and discomfort and mobility problem she was giving IV fluid and fentanyl at the time was seen in the emergency department with elevated CK was diagnosed with mild rhabdomyolysis, blood pressure was mildly low and patient was quite bit dehydrated at the time with mild tachycardia. After hydration she felt slightly but better but continued to have significant problem with ambulating. In response to trauma multiple x-ray were done including right shoulder which showed impacted and partial communicated fracture involving the right humeral neck with the greater and lesser trochanteric component, patient be seen orthopedic might require open versus closed reduction. Otherwise x-ray of the knee failed to show any fracture. X-ray of the chest showed crit chronic a change without acute infection. And x-ray of the C-spine and had show multiple disc disease mostly degenerative disc disease with no major abnormality no intercurrent hemorrhage was seen on CAT scan of the brain. 03/25: Patient is resting comfortably in bed. Patient states that her pain is under control. She is complaining of some discomfort to the right flank area however she has not had a bowel movement since Friday. Patient states that she is more coherent and able to answer questions appropriately at this time. Patient has been afebrile overnight. Blood pressure 151/84, respirations 17, heart rate 81, pulse ox 99% on 2 L of O2 via nasal cannula. WC 11.3, hemoglobin 13.3, potassium 4.1, BUN 20, creatinine 0.61, CK 706 yesterday. CK-MB 2.2. Alexander in place. Patient has not been seen by orthopedics at this time. Patient does have a proximal humerus fracture. 03/26/2020: Patient is complaining of constipation and abdominal fullness. Patient states that she has not had a bowel movement for the last few days. She is feeling uncomfortable. Patient is having difficulty with movement related to fracture. Patient was seen by orthopedics who recommends surgical intervention of a cemented reverse total shoulder arthroplasty of the right shoulder on either 03/28 or 03/[address] Smith Patient was fitted with a new arm sling per orthopedics. Patient remains afebrile, blood pressure 166/93, heart rate 95, respirations 18. Labs are within normal limits 03/27: Afebrile, HR 98, BP 142/83, Pulseox 93% on RA. Repeat CBC is unremarkable. Sodium 135, potassium 4.3, chloride 100, CO2 26, BUN 14 creatinine 0.67. Patient is scheduled for surgery on Friday. She is a Quesada in place. She has not had a bowel movement. Patient was started on lactulose twice daily. Anticipate need for discharge to subacute rehab. Review of systems CONSTITUTIONAL: Well-developed no acute respiratory distress. Denies fever and chills. EYES: No icterus sclerae, no conjunctivitis. EARS, NOSE, MOUTH, THROAT, and FACE: No sore throat, lymphadenopathy, carotid bruits or deformity. RESPIRATORY: No SOB cough or wheezes. CARDIOVASCULAR: No CP, Palpitation, PND, Orthopnea, or angina. GASTROINTESTINAL: No Abd pain, Nausea or vomiting, no Diarrhea reports constipation, No GI Bleed, reports distention no masses. GENITOURINARY: Negative for Hematuria or UTI, no kidney stones. Decrease in urine output INTEGUMENT/BREAST: Significant pain and discomfort with ecchymosis and bruises of the right upper extremity and right knee area... HEMATOLOGIC/LYMPHATIC: Negative for bleed or purpura. MUSCULOSKELTAL: Negative for Myalgia or arthralgia. NEURLOGICAL: No LOC, Sz or syncope, blurred vision dizziness or abnormality severe abnormal balancing gait BEHAVIORAL/PSYCH: Negative. ENDOCRINE: Negative. Physical Examination General Appearance: Alert, cooperative, no distress, 79-year-old appears stated age. Neck HEENT: Supple, no lymphadenopathy, no thyroid enlargement, no carotid bruits. Lungs: Clear to auscultation without crackles or wheezes no rhonchi, no deformity. Chest Wall: Chest wall normal expansion with deep inspiration no tenderness and no deformity was found on exam, no costochondral pain or discomfort. Heart: Regular rate and rhythm, S1, S2 normal, no murmur, rub or gallop. Back: Symmetric, no curvature, ROM normal, no CVA tenderness. Mild bruise on the right side Abdomen: Soft, non-tender, bowel sounds active all four quadrants, no masses, no organomegaly. Extremities: Significant a bruise and trauma on the right knee and the thigh area with mild bruise as well and ecchymosis. Significant ecchymosis and bruise on the shoulder area with slight soreness and decreased mobility of the shoulder. Sling in place to right upper extremity ecchymosis and swelling noticed to right side of face including periorbital area. Pulses: 2+ and symmetric. Skin: Skin color, texture, tugor normal, no rashes or lesions. Neurologic: Alert oriented x3 cranial nerves II through XII intact, no motor deficit, positive normal balance and gait. Assessment and Plan 1 severe rhabdomyolysis: Repeat CK 132, continue hydration and continue supportive care patient is hemodynamically stable her blood pressure has improved so far. 2 severe dehydration: Decreased hydration with normal saline to 50 ML's per hour. Continue to monitor for fluid overload. 3 post fall with right humerus fracture: Orthopedic consult appreciated. Recommendation for a cemented reverse total arthroplasty of the right shoulder on Friday with Dr. Smith. New arm sling fitted per orthopedics 4 mild leukocytosis: With no sign of infection, most likely from rhabdomyolysis mild trauma and bruise continue to watch symptoms carefully. 5 abnormal liver function tests: With elevated bilirubin and AST not a clear etiology patient might have Gilbert's syndrome and this could be from dehydration and hypoperfusion, continue hydration CMP within normal limits 6 hypertension: Resume lisinopril keep watching for any abnormal kidney function test. 7 severe GERD and GI prophylaxis: Patient will be on omeprazole. 8 DVT prophylaxis: Patient will be on heparin 5000 units subcutaneous twice a day. Discharge plan: Possibly subacute rehab CODE STATUS: Full code. Impression and plan of care have been directed as dictated by the signing physician. Phyllis Jose nurse practitioner acting as scribe for signing physician. Objective - Vital Signs Vital signs: Vital Signs Temp 98.2 F 03/27/20 07:00 Pulse 98 03/27/20 07:00 Resp 18 03/27/20 07:00 BP 142/83 03/27/20 07:00 Pulse Ox 93 L 03/27/20 07:00 Intake & Output 03/26/20 03/27/20 03/27/20 18:59 06:59 18:59 Intake Total 400 Output Total 3475 Balance 400 -3475 Intake: IV 400 Sodium Chloride 0.9% 1, 400 000 ml @ 50 mls/hr IV . Q20H [facility] Rx#:[id number] Output: Urine 3475 Other: Voiding Method Indwelling Catheter - Labs CBC & Chem 7: 03/26/20 06:26 03/26/20 06:26
--- NOTE | 2020-03-27 15:25 | P.PN ---
Progress Note - Text Progress Note Date: 03/27/20 Patient is evaluated today at bedside, she is resting comfortably. Physical therapy was in the room today to help get patient out of bed for the first time. She has not had a bowel movement at this time. She is being followed by internal medicine. She states the pain in the shoulder slightly improved. Planning for surgery tomorrow morning with Dr. Carmichael, she'll be made nothing by mouth after midnight.
[2020-03-28] MEDS: SODIUM CHLORIDE 0.9% 1,000 ML IV SCH ×2 (02:08→06:56)
[2020-03-28] MEDS ORDERED: MIDAZOLAM 2 MG/2 ML VIAL IV PRN (05:21)
[2020-03-28] MEDS ORDERED: ONDANSETRON 4 MG/2 ML VIAL IVP ONE (05:21)
[2020-03-28] MEDS ORDERED: DEXAMETHASONE SOD PHOSPHATE 10 MG/ML 1 ML VIAL IV ONE (05:21)
[2020-03-28] MEDS ORDERED: IV FLUID CONTINUATION 1,000 ML IV ONE (06:45)
[2020-03-28] MEDS: HEPARIN SODIUM,PORCINE 5,000 UNIT/ML 1 ML VIAL SQ SCH ×2 (06:57→20:40)
[2020-03-28] MEDS: LACTULOSE 20 GM/30 ML CUP PO SCH ×2 (06:57→20:41)
[2020-03-28] MEDS: PANTOPRAZOLE 40 MG TABLET PO SCH (06:57)
[2020-03-28] MEDS: bisacodyL 5 MG TABLET.DR PO SCH ×2 (06:57→20:40)
[2020-03-28] MEDS ORDERED: ROCURONIUM 10 MG/ML (5 ML VIAL) IV ONE (08:00)
[2020-03-28] MEDS ORDERED: MIDAZOLAM 2 MG/2 ML VIAL ONE (08:00)
[2020-03-28] MEDS ORDERED: SUCCINYLCHOLINE CHLORIDE 100 MG/5 ML SYR IV ONE (08:00)
[2020-03-28] MEDS ORDERED: fentaNYL (PF) 50 MCG/ML 2 ML AMP ONE (08:00)
[2020-03-28] MEDS ORDERED: SODIUM CHLORIDE 0.9% IRRIG 1,000 ML BTL IRRIGATION ONE (08:00)
[2020-03-28] MEDS ORDERED: PHENYLEPHRINE-0.9% NACL SYG 1 MG/10 ML SYRINGE ONE (08:00)
[2020-03-28] MEDS ORDERED: LIDOCAINE 1% INJ 10MG/ML (20 ML MDV) ONE (08:00)
[2020-03-28] MEDS ORDERED: ROPIVACAINE 5 MG/ML 30 ML VIAL ONE (08:00)
[2020-03-28] MEDS ORDERED: HEPARIN SODIUM,PORCINE 10,000 UNIT/ML 1 ML VIAL ONE (08:00)
[2020-03-28] MEDS ORDERED: PROPOFOL 10 MG/ML 20 ML VIAL IV ONE (08:00)
[2020-03-28] MEDS ORDERED: ceFAZolin 1,000 MG VIAL IVPB ONE (08:20)
[2020-03-28] MEDS ORDERED: SODIUM CHLORIDE 0.9% 1,000 ML IV ONE ×2 (09:24→11:37)
[2020-03-28] MEDS ORDERED: SENNOSIDES-DOCUSATE SODIUM 1 EACH TAB PO PRN (10:06)
--- NOTE | 2020-03-28 10:40 | P.OP ---
Date of Procedure: 03/28/20 Preoperative Diagnosis: Displaced four-part right proximal humerus fracture Postoperative Diagnosis: Same Procedure(s) Performed: Right reverse total shoulder arthroplasty Implants: Depuy Delta Xtend size 10 cemented long humeral stem, 38 mm glenosphere with +10 baseplate, 38+6 articular surface. Anesthesia: MCKAY Surgeon: Oliver Carmichael Jewellery Designer #1: Miah Cruz Estimated Blood Loss (ml): 200 Pathology: other (Humeral head) Condition: stable Disposition: PACU Indications for Procedure: The patient is a 79-year-old female presents after falling injuring her right shoulder. Upon evaluation she is noted of the significantly displaced four-part proximal humerus fracture with a head splitting fragment. A discussion of the risks and benefits of operative intervention was made with the patient and her family. She opted to proceed. Operative risks to include infection, neurovascular injury, development of blood clots, possible fracture, possible instability and need for subsequent procedures was discussed. Informed consent was obtained. Operative Findings: As below Description of Procedure: The patient was brought to the operating room, and after induction of general anesthesia was placed in a beachchair position. The bony prominences were appropriately padded. I examined the left shoulder. There was moderate lack of passive forward elevation and external rotation. The left upper extremity was prepped and draped in normal fashion. The bony outlines the coracoid process, distal clavicle, and acromion were outlined with a skin marker. A pulse ce ntimeter deltopectoral incision was made lateral to the coracoid process. Skin was incised sharply. Subcutaneous tissues were divided bluntly. Electrocautery was used for hemostasis. The cephalic vein was identified and gently retracted laterally with the deltoid. The deltopectoral was bluntly developed. Subdeltoid adhesions were then released. The self-retaining retractor was placed. The conjoined tendon was retracted medially and the deltoid laterally. The biceps was identified. Its sheath was opened. A biceps tenotomy was performed along the remaining tendon did retract distally. The fracture fragments were identified and including the lesser and greater tuberosities. These were tagged with #2 Ethibond suture. The head fragment was removed. Attention was then paid towards preparing the glenoid. An anterior and posterior retractors placed. The labrum was released from the 6:00 to 12 o'clock position. Remaining biceps was removed as well. A guidepin was placed in the inferior aspect of the glenoid with the guide slightly tilting inferior. The reamer was used down to a bleeding bony surface. The central peg hole was drilled. The standard baseplate was inserted with good purchase. Inferior, superior, anterior and posterior locking screws the appropriate length were placed. Good purchase was obtained. The 38 mm glenosphere was inserted over a guidewire. This was fully seated. Care was taken to avoid any soft tissue interposition. Attention was then paid towards preparing the humeral shaft. This was hand reamed to 8 mm. There is good distal chatter. I planned on a long stem. The alignment jig was attached the proximal humeral shaft and the trial component was inserted to the appropriate depth. I planned on 20 of retroversion. I trialed with a 38+6 articular surface. The shoulder was gently reduced. It was felt to be stable in flexion and extension with internal and external rotation. I felt there was adequate sikhism of soft tissue tension judging off the conjoined tendon. The shoulder was gently dislocated. The trial components were then removed. Cement was inserted in the humeral shaft along with the final long 8mm implant. This was held in place with the alignment jig it 20 of retroversion. After the cement had sufficiently hardened, trial reduction was again obtained with a 38+6 articular surface. The shoulder again was gently reduced and taken through range of motion. Again it was felt to be stable in all planes. The trial articular surface was removed and the final 38+6 articular surface was gently impacted. The greater and lesser tuberosities were attached to each other with #2 Ethibond suture. The deltopectoral interval was closed with interrupted 2-0 Vicryl sutures. The skin was reapproximated with 3-0 subcuticular Prolene suture. Steri-Strips were applied. A sterile dressing was applied. A sling was placed. The patient was awoken from general anesthesia and transferred to recovery room in good condition. Blood loss was estimated at 200 mL. No complications were incurred. Sponge and needle counts were correct at the end the case. Antoni MOTA assisted during the major components of the case to include exposure, glenoid and humeral preparation, implantation, and closure.
[2020-03-28] MEDS ORDERED: HYDROmorphone 1 MG/ML 1 ML SYRINGE IVP ONE ×3 (10:42→10:50)
[2020-03-28] MEDS ORDERED: HYDROmorphone 0.5 MG/0.5 ML SYRINGE IVP ONE (10:58)
--- NOTE | 2020-03-28 11:15 | P.PN ---
Subjective Progress Note Date: 03/28/20 79-year-old female one of Dr. loyd's patient with past medical history of hypertension, osteoarthritis, GERD and reflex syndrome who live alone at home drip and felt 4 days ago and her portion developed to have severe bruises and ecchymosis on the right shoulder and upper extremity area along with right knee developed to have significant problem ambulating and walking with significant abnormal balance and gait. Patient was not able to stand up and walk to the bathroom today ended up coming to the emergency department by EMS with severe pain and discomfort and mobility problem she was giving IV fluid and fentanyl at the time was seen in the emergency department with elevated CK was diagnosed with mild rhabdomyolysis, blood pressure was mildly low and patient was quite bit dehydrated at the time with mild tachycardia. After hydration she felt slightly but better but continued to have significant problem with ambulating. In response to trauma multiple x-ray were done including right shoulder which showed impacted and partial communicated fracture involving the right humeral neck with the greater and lesser trochanteric component, patient be seen orthopedic might require open versus closed reduction. Otherwise x-ray of the knee failed to show any fracture. X-ray of the chest showed crit chronic a change without acute infection. And x-ray of the C-spine and had show multiple disc disease mostly degenerative disc disease with no major abnormality no intercurrent hemorrhage was seen on CAT scan of the brain. 03/25: Patient is resting comfortably in bed. Patient states that her pain is under control. She is complaining of some discomfort to the right flank area however she has not had a bowel movement since Friday. Patient states that she is more coherent and able to answer questions appropriately at this time. Patient has been afebrile overnight. Blood pressure 151/84, respirations 17, heart rate 81, pulse ox 99% on 2 L of O2 via nasal cannula. WC 11.3, hemoglobin 13.3, potassium 4.1, BUN 20, creatinine 0.61, CK 706 yesterday. CK-MB 2.2. Alexander in place. Patient has not been seen by orthopedics at this time. Patient does have a proximal humerus fracture. 03/26/2020: Patient is complaining of constipation and abdominal fullness. Patient states that she has not had a bowel movement for the last few days. She is feeling uncomfortable. Patient is having difficulty with movement related to fracture. Patient was seen by orthopedics who recommends surgical intervention of a cemented reverse total shoulder arthroplasty of the right shoulder on either 03/28 or 03/[address] Smith Patient was fitted with a new arm sling per orthopedics. Patient remains afebrile, blood pressure 166/93, heart rate 95, respirations 18. Labs are within normal limits 03/27: Afebrile, HR 98, BP 142/83, Pulseox 93% on RA. Repeat CBC is unremarkable. Sodium 135, potassium 4.3, chloride 100, CO2 26, BUN 14 creatinine 0.67. Patient is scheduled for surgery on Friday. She is a Quesada in place. She has not had a bowel movement. Patient was started on lactulose twice daily. Anticipate need for discharge to subacute rehab. 03/28: Patient is going for surgery today. Anticipate discharge to [facility] tomorrow. She has been afebrile, heart rate 87, blood pressure 172/81, pulse ox 99 % on room air. Repeat lab work ordered for the morning. Review of systems CONSTITUTIONAL: Well-developed no acute respiratory distress. Denies fever and chills. EYES: No icterus sclerae, no conjunctivitis. EARS, NOSE, MOUTH, THROAT, and FACE: No sore throat, lymphadenopathy, carotid bruits or deformity. RESPIRATORY: No SOB cough or wheezes. CARDIOVASCULAR: No CP, Palpitation, PND, Orthopnea, or angina. GASTROINTESTINAL: No Abd pain, Nausea or vomiting, no Diarrhea reports constipation, No GI Bleed, reports distention no masses. GENITOURINARY: Negative for Hematuria or UTI, no kidney stones. Decrease in urine output INTEGUMENT/BREAST: Significant pain and discomfort with ecchymosis and bruises of the right upper extremity and right knee area... HEMATOLOGIC/LYMPHATIC: Negative for bleed or purpura. MUSCULOSKELTAL: Negative for Myalgia or arthralgia. NEURLOGICAL: No LOC, Sz or syncope, blurred vision dizziness or abnormality sev ere abnormal balancing gait BEHAVIORAL/PSYCH: Negative. ENDOCRINE: Negative. Physical Examination General Appearance: Alert, cooperative, no distress, 79-year-old appears stated age. Neck HEENT: Supple, no lymphadenopathy, no thyroid enlargement, no carotid bruits. Lungs: Clear to auscultation without crackles or wheezes no rhonchi, no deformity. Chest Wall: Chest wall normal expansion with deep inspiration no tenderness and no deformity was found on exam, no costochondral pain or discomfort. Heart: Regular rate and rhythm, S1, S2 normal, no murmur, rub or gallop. Back: Symmetric, no curvature, ROM normal, no CVA tenderness. Mild bruise on the right side Abdomen: Soft, non-tender, bowel sounds active all four quadrants, no masses, no organomegaly. Extremities: Significant a bruise and trauma on the right knee and the thigh area with mild bruise as well and ecchymosis. Significant ecchymosis and bruise on the shoulder area with slight soreness and decreased mobility of the shoulder. Sling in place to right upper extremity ecchymosis and swelling no ticed to right side of face including periorbital area. Pulses: 2+ and symmetric. Skin: Skin color, texture, tugor normal, no rashes or lesions. Neurologic: Alert oriented x3 cranial nerves II through XII intact, no motor deficit, positive normal balance and gait. Assessment and Plan 1 severe rhabdomyolysis: Repeat CK 132, continue hydration and continue suppo rtive care patient is hemodynamically stable her blood pressure has improved so far. 2 severe dehydration: Decreased hydration with normal saline to 50 ML's per hour. Continue to monitor for fluid overload. 3 post fall with right humerus fracture: Orthopedic consult appreciated. Recommendation for a cemented reverse total arthroplasty of the right shoulder today with Dr. Smith. 4 mild leukocytosis: With no sign of infection, most likely from rhabdomyolysis mild trauma and bruise continue to watch symptoms carefully. 5 abnormal liver function tests: With elevated bilirubin and AST not a clear etiology patient might have Gilbert's syndrome and this could be from dehydration and hypoperfusion, continue hydration CMP within normal limits 6 hypertension: Resume lisinopril keep watching for any abnormal kidney function test. 7 severe GERD and GI prophylaxis: Patient will be on omeprazole. 8 DVT prophylaxis: Patient will be on heparin 5000 units subcutaneous twice a day. Discharge plan: on Friday CODE STATUS: Full code. Impression and plan of care have been directed as dictated by the signing physician. Phyllis Jose nurse practitioner acting as scribe for signing physician. Objective - Vital Signs Vital signs: Vital Signs Temp 97.9 F 03/28/20 10:29 Pulse 90 03/28/20 10:44 Resp 18 03/28/20 10:44 BP 156/81 03/28/20 10:44 Pulse Ox 100 03/28/20 10:44 Intake & Output 03/27/20 03/28/20 03/28/20 18:59 06:59 18:59 Intake Total 600 1250 Output Total 14663 3300 1600 Balance -68265 -2700 -350 Intake: IV 100 1250 Sodium Chloride 0.9% 1, 100 000 ml @ 50 mls/hr IV . Q20H TEOFILO Rx#:[id number] Intake, IV Titration 500 Amount Sodium Chloride 0.9% 1, 500 000 ml @ 50 mls/hr IV . Q20H TEOFILO Rx#:[id number] Output: Urine 31915 3300 1400 Estimated Blood Loss 200 Other: Voiding Method Indwelling Catheter Indwelling Catheter - Labs CBC & Chem 7: 03/26/20 06:26 03/26/20 06:26
--- NOTE | 2020-03-28 11:45 | XR ---
EXAMINATION TYPE: XR shoulder limited RT DATE OF EXAM: 03/28/2020 COMPARISON: 03/24/2020 HISTORY: Right shoulder prosthesis placement TECHNIQUE: Single view right shoulder FINDINGS: Glenoid component and humeral components of in place. No new acute fractures are evident. IMPRESSION: 1. No acute fracture post right shoulder replacement
--- NOTE | 2020-03-28 12:00 | P.ANPRN ---
Procedure Note - Anesthesia - Nerve Block Performed Right Interscalene Single Time Out Performed: Yes (1059) Date of Procedure: 03/28/20 Procedure Start Time: 11:00 Procedure Stop Time: 11:04 Location of Patient: PreOp Indication: Acute Post-Operative Pain, Requested by Surgeon Specifically requested for management of pain by : Oliver Carmichael Sedation Type: Sedate with meaningful contact maintained Preparation: Sterile Prep Position: Supine Catheter: None Needle Types: Pajunk Needle Gauge: 21 Ultrasound used to visualize needle placement: Yes Ultrasound used to observe medication spread: Yes Injectate: 0.5% Ropivacaine (see comment for volume) (20cc) Blood Aspirated: No Pain Paresthesia on Injection Noted: No Resistance on Injection: Normal Image Stored and Saved: Yes Events: Uneventful and Well Tolerated
[2020-03-28] MEDS: LACTATED RINGERS 1,000 ML IV SCH (12:22)
[2020-03-28] MEDS: lisinopriL 20 MG TAB PO SCH ×2 (12:32→20:41)
[2020-03-28] MEDS: HYDROcodone/APAP 5-325MG 1 EACH TAB PO PRN ×2 (15:04→23:58)
[2020-03-28] MEDS: HYDROmorphone 0.5 MG/0.5 ML SYRINGE IVP PRN ×2 (17:44→20:41)
[2020-03-29] MEDS: HYDROmorphone 0.5 MG/0.5 ML SYRINGE IVP PRN ×2 (01:45→03:37)
[2020-03-29] MEDS: HYDROcodone/APAP 5-325MG 1 EACH TAB PO PRN ×3 (05:18→18:36)
[2020-03-29] MEDS: ONDANSETRON 4 MG/2 ML VIAL IVP PRN ×2 (05:19→15:14)
[2020-03-29] MEDS: HYDROmorphone 1 MG/ML 1 ML SYRINGE IVP PRN ×4 (06:02→22:54)
[2020-03-29 07:38] LABS: Basophils % (A) 0 %; Eosinophils # (A) 0.1 k/uL (0-0.7); Eosinophils % (A) 0 %; HCT 36.9 % (34.0-46.0); HGB 11.7 gm/dL (11.4-16.0); Lymphocytes # (A) 1.4 k/uL (1.0-4.8); Lymphocytes % (A) 11 %; MCH 27.9 pg (25.0-35.0); MCHC 31.6 g/dL (31.0-37.0); MCV 88.3 fL (80.0-100.0); Mean Platelet Volume 8.1; Monocytes # (A) 0.8 k/uL (0-1.0); Monocytes % (A) 6 %; Neutrophils # (A) 10.8 k/uL (1.3-7.7); Neutrophils % (A) 81 %; Platelet Count 242 k/uL (150-450); RBC 4.18 m/uL (3.80-5.40); RDW 13.6 % (11.5-15.5); WBC 13.3 k/uL (3.8-10.6)
[2020-03-29] MEDS: LACTATED RINGERS 1,000 ML IV SCH (07:38)
[2020-03-29] MEDS: bisacodyL 5 MG TABLET.DR PO SCH ×2 (07:48→20:54)
[2020-03-29] MEDS: LACTULOSE 20 GM/30 ML CUP PO SCH ×2 (07:48→20:54)
[2020-03-29] MEDS: lisinopriL 20 MG TAB PO SCH ×2 (07:48→20:55)
[2020-03-29] MEDS: PANTOPRAZOLE 40 MG TABLET PO SCH (07:48)
[2020-03-29] MEDS: HEPARIN SODIUM,PORCINE 5,000 UNIT/ML 1 ML VIAL SQ SCH ×2 (07:49→20:54)
[2020-03-29] MEDS: SODIUM CHLORIDE 0.9% 1,000 ML IV SCH ×2 (07:49→23:12)
[2020-03-29 07:51] LABS: African American GFR (CKD) >90 (>60 ml/min/1.73 sqM); Anion Gap 6 mmol/L; Blood Urea Nitrogen 11 mg/dL (7-17); Calcium 8.3 mg/dL (8.4-10.2); Carbon Dioxide 24 mmol/L (22-30); Chloride 98 mmol/L (98-107); Glucose 123 mg/dL (74-99); Non-African American GFR(CKD) 88 (>60 ml/min/1.73 sqM); Potassium 4.4 mmol/L (3.5-5.1); Sodium 128 mmol/L (137-145)
--- NOTE | 2020-03-29 10:01 | P.PN ---
Subjective Progress Note Date: 03/29/20 79-year-old female one of Dr. loyd's patient with past medical history of hypertension, osteoarthritis, GERD and reflex syndrome who live alone at home drip and felt 4 days ago and her portion developed to have severe bruises and ecchymosis on the right shoulder and upper extremity area along with right knee developed to have significant problem ambulating and walking with significant abnormal balance and gait. Patient was not able to stand up and walk to the bathroom today ended up coming to the emergency department by EMS with severe pain and discomfort and mobility problem she was giving IV fluid and fentanyl at the time was seen in the emergency department with elevated CK was diagnosed with mild rhabdomyolysis, blood pressure was mildly low and patient was quite bit dehydrated at the time with mild tachycardia. After hydration she felt slightly but better but continued to have significant problem with ambulating. In response to trauma multiple x-ray were done including right shoulder which showed impacted and partial communicated fracture involving the right humeral neck with the greater and lesser trochanteric component, patient be seen orthopedic might require open versus closed reduction. Otherwise x-ray of the knee failed to show any fracture. X-ray of the chest showed crit chronic a change without acute infection. And x-ray of the C-spine and had show multiple disc disease mostly degenerative disc disease with no major abnormality no intercurrent hemorrhage was seen on CAT scan of the brain. 03/25: Patient is resting comfortably in bed. Patient states that her pain is under control. She is complaining of some discomfort to the right flank area however she has not had a bowel movement since Friday. Patient states that she is more coherent and able to answer questions appropriately at this time. Patient has been afebrile overnight. Blood pressure 151/84, respirations 17, heart rate 81, pulse ox 99% on 2 L of O2 via nasal cannula. WC 11.3, hemoglobin 13.3, potassium 4.1, BUN 20, creatinine 0.61, CK 706 yesterday. CK-MB 2.2. Alexander in place. Patient has not been seen by orthopedics at this time. Patient does have a proximal humerus fracture. 03/26/2020: Patient is complaining of constipation and abdominal fullness. Patient states that she has not had a bowel movement for the last few days. She is feeling uncomfortable. Patient is having difficulty with movement related to fracture. Patient was seen by orthopedics who recommends surgical intervention of a cemented reverse total shoulder arthroplasty of the right shoulder on either 03/28 or 03/[address] Smith Patient was fitted with a new arm sling per orthopedics. Patient remains afebrile, blood pressure 166/93, heart rate 95, respirations 18. Labs are within normal limits 03/27: Afebrile, HR 98, BP 142/83, Pulseox 93% on RA. Repeat CBC is unremarkable. Sodium 135, potassium 4.3, chloride 100, CO2 26, BUN 14 creatinine 0.67. Patient is scheduled for surgery on Friday. She is a Quesada in place. She has not had a bowel movement. Patient was started on lactulose twice daily. Anticipate need for discharge to subacute rehab. 03/28: Patient is going for surgery today. Anticipate discharge to [facility] tomorrow. She has been afebrile, heart rate 87, blood pressure 172/81, pulse ox 99 % on room air. Repeat lab work ordered for the morning. 03/29: Yesterday, patient underwent a right reverse total shoulder arthroplasty. She has had some trouble with pain control and she complains of difficulty sleeping. Melatonin will be added. Sodium this morning is a 128 most likely secondary to pain. WBC 13.3. Son is at bedside and all questions have been answered. Patient requires a repeat COVID-19 test prior to discharge which will be obtained today. Anticipate discharge to [facility] tomorrow. Review of systems CONSTITUTIONAL: Well-developed no acute respiratory distress. Denies fever and chills. EYES: No icterus sclerae, no conjunctivitis. EARS, NOSE, MOUTH, THROAT, and FACE: No sore throat, lymphadenopathy, carotid b ruits or deformity. RESPIRATORY: No SOB cough or wheezes. CARDIOVASCULAR: No CP, Palpitation, PND, Orthopnea, or angina. GASTROINTESTINAL: No Abd pain, Nausea or vomiting, no Diarrhea reports constipa tion, No GI Bleed, reports distention no masses. GENITOURINARY: Negative for Hematuria or UTI, no kidney stones. Decrease in urine output INTEGUMENT/BREAST: Pain right upper extremity. HEMATOLOGIC/LYMPHATIC: Negative for bleed or purpura. MUSCULOSKELTAL: Negative for Myalgia or arthralgia. NEURLOGICAL: No LOC, Sz or syncope, blurred vision dizziness or abnormality severe abnormal balancing gait BEHAVIORAL/PSYCH: Negative. ENDOCRINE: Negative. Physical Examination General Appearance: Alert, cooperative, no distress, 79-year-old appears stated age. Neck HEENT: Supple, no lymphadenopathy, no thyroid enlargement, no carotid bruits. Lungs: Clear to auscultation without crackles or wheezes no rhonchi, no deformity. Chest Wall: Chest wall normal expansion with deep inspiration no tenderness and no deformity was found on exam, no costochondral pain or discomfort. Heart: Regular rate and rhythm, S1, S2 normal, no murmur, rub or gallop. Back: Symmetric, no curvature, ROM normal, no CVA tenderness. Mild bruise on the right side Abdomen: Soft, non-tender, bowel sounds active all four quadrants, no masses, no organomegaly. Extremities: Significant a bruise and trauma on the right knee and the thigh area with mild bruise as well and ecchymosis. Right shoulder Sling in place to right upper extremity ecchymosis and swelling noticed to right side of face in cluding periorbital area. Dressing to the right shoulder with no breakthrough bleeding or drainage. Pulses: 2+ and symmetric. Skin: Skin color, texture, tugor normal, no rashes or lesions. Neurologic: Alert oriented x3 cranial nerves II through XII intact, no motor deficit, positive normal balance and gait. Assessment and Plan 1 severe rhabdomyolysis, resolved. 2 severe dehydration with hyponatremia. Continue normal saline to 50 ML's per hour. Continue to monitor for fluid overload. 3 post fall with right humerus fracture: Orthopedic consult appreciated. Recommendation for a cemented reverse total arthroplasty of the right shoulder today with Dr. Smith. 4 mild leukocytosis: With no sign of infection, most likely from rhabdomyolysis mild trauma and bruise continue to watch symptoms carefully. 5 abnormal liver function tests: With elevated bilirubin and AST not a clear etiology patient might have Gilbert's syndrome and this could be from deh ydration and hypoperfusion, continue hydration CMP within normal limits 6 hypertension: Resume lisinopril keep watching for any abnormal kidney function test. 7 severe GERD and GI prophylaxis: Patient will be on omeprazole. 8 DVT prophylaxis: Patient will be on heparin 5000 units subcutaneous twice a day. Discharge plan: on CODE STATUS: Full code. Impression and plan of care have been directed as dictated by the signing physician. Phyllis Jose nurse practitioner acting as scribe for signing physician. Objective - Vital Signs Vital signs: Vital Signs Temp 98.4 F 03/29/20 01:01 Pulse 112 H 03/29/20 01:01 Resp 18 03/29/20 01:01 BP 127/85 03/29/20 01:01 Pulse Ox 92 L 03/29/20 01:01 Intake & Output 03/28/20 03/29/20 03/29/20 18:59 06:59 18:59 Intake Total 1790 800 Output Total 1600 800 Balance 190 0 Intake: IV 1550 400 Sodium Chloride 0.9% 1, 400 000 ml @ 50 mls/hr IV . Q20H TEOFILO Rx#:[id number] Intake, IV Titration 400 Amount Sodium Chloride 0.9% 1, 400 000 ml @ 50 mls/hr IV . Q20H TEOFILO Rx#:[id number] Oral 240 Output: Urine 1400 800 Estimated Blood Loss 200 Other: Voiding Method Indwelling Catheter Indwelling Catheter - Labs CBC & Chem 7: 03/29/20 06:40 03/29/20 06:40
--- NOTE | 2020-03-29 12:49 | P.PN ---
Subjective Progress Note Date: 03/29/20 Principal diagnosis: 3/4 part proximal humerus fracture Patient seen today at bedside, she is resting comfortably. She did have some increase in pain through the night. She denies any chest pain or shortness of breath currently. Objective - Vital Signs Vital signs: Vital Signs Temp 97.7 F 03/29/20 07:00 Pulse 99 03/29/20 07:00 Resp 16 03/29/20 07:00 BP 124/80 03/29/20 07:00 Pulse Ox 94 L 03/29/20 07:00 Intake & Output 03/28/20 03/29/20 03/29/20 18:59 06:59 18:59 Intake Total 1790 800 Output Total 1600 800 Balance 190 0 Intake: IV 1550 400 Sodium Chloride 0.9% 1, 400 000 ml @ 50 mls/hr IV . Q20H TEOFILO Rx#:[id number] Intake, IV Titration 400 Amount Sodium Chloride 0.9% 1, 400 000 ml @ 50 mls/hr IV . Q20H TEOFILO Rx#:[id number] Oral 240 Output: Urine 1400 800 Estimated Blood Loss 200 Other: Voiding Method Indwelling Catheter Indwelling Catheter Indwelling Catheter - Exam Right upper extremity: Postop bandage was removed, incision is clean, dry and intact. Bruising and soft tissue swelling present. Sensory exam to light touch is intact throughout the extremity. She is able to extend and flex the wrist without difficulty. Radial pulses 2+ - Labs CBC & Chem 7: 03/29/20 06:40 03/29/20 06:40 Labs: Abnormal Lab Results - Last 24 Hours (Table) 03/29/20 03/29/20 Range/Units 06:40 06:40 WBC 13.3 H (3.8-10.6) k/uL Neutrophils # 10.8 H (1.3-7.7) k/uL Sodium 128 L (137-145) mmol/L Glucose 123 H (74-99) mg/dL Calcium 8.3 L (8.4-10.2) mg/dL Assessment and Plan Assessment: Imaging: X-rays were reviewed of the pelvis and right hip, no acute fractures or dislocations appreciated. No other osseous abnormality is. Assessment: 3/4 part displaced right proximal humerus fracture Right knee osteoarthritis, right knee contusion Multiple medical comorbidities Plan: Pain control, continue current medication GI and DVT prophylaxis, continue current medication Other medical staff services manager recommendations Pain control Physical therapy evaluation We will continue to follow during inpatient stay, plan for discharge tomorrow Time with Patient: Less than 30
[2020-03-29] MEDS ORDERED: MELATONIN 3 MG TABLET PO SCH (21:00)
[2020-03-30] MEDS: HYDROcodone/APAP 5-325MG 1 EACH TAB PO PRN (06:24)
[2020-03-30] MEDS: LACTULOSE 20 GM/30 ML CUP PO SCH (08:14)
[2020-03-30] MEDS: lisinopriL 20 MG TAB PO SCH (08:15)
[2020-03-30] MEDS: HEPARIN SODIUM,PORCINE 5,000 UNIT/ML 1 ML VIAL SQ SCH (08:15)
[2020-03-30] MEDS: bisacodyL 5 MG TABLET.DR PO SCH (08:15)
[2020-03-30] MEDS: PANTOPRAZOLE 40 MG TABLET PO SCH (08:15)
--- NOTE | 2020-03-30 08:46 | P.DS ---
Providers Date of admission: 03/24/20 14:53 Expected date of discharge: 03/30/20 Attending physician: Jj Stearns Consults: 03/24/20 14:54 Consult Physician Routine Consulting Provider: Chay Aguirre Consult Reason/Comments: Proximal humerus fracture Do you want consulting provider notified?: Yes Primary care physician: [facility] Course: 79-year-old female one of Dr. loyd's patient with past medical history of hypertension, osteoarthritis, GERD and reflex syndrome who live alone at home drip and felt 4 days ago and her portion developed to have severe bruises and ecchymosis on the right shoulder and upper extremity area along with right knee developed to have significant problem ambulating and walking with significant abnormal balance and gait. Patient was not able to stand up and walk to the bathroom today ended up coming to the emergency department by EMS with severe pain and discomfort and mobility problem she was giving IV fluid and fentanyl at the time was seen in the emergency department with elevated CK was diagnosed with mild rhabdomyolysis, blood pressure was mildly low and patient was quite bit dehydrated at the time with mild tachycardia. After hydration she felt slightly but better but continued to have significant problem with ambulating. In response to trauma multiple x-ray were done including right shoulder which showed impacted and partial communicated fracture involving the right humeral neck with the greater and lesser trochanteric component, patient be seen orthopedic might require open versus closed reduction. Otherwise x-ray of the knee failed to show any fracture. X-ray of the chest showed crit chronic a change without acute infection. And x-ray of the C-spine and had show multiple disc disease mostly degenerative disc disease with no major abnormality no intercurrent hemorrhage was seen on CAT scan of the brain. 03/25: Patient is resting comfortably in bed. Patient states that her pain is under control. She is complaining of some discomfort to the right flank area however she has not had a bowel movement since Friday. Patient states that she is more coherent and able to answer questions appropriately at this time. Patient has been afebrile overnight. Blood pressure 151/84, respirations 17, heart rate 81, pulse ox 99% on 2 L of O2 via nasal cannula. WC 11.3, hemoglobin 13.3, potassium 4.1, BUN 20, creatinine 0.61, CK 706 yesterday. CK-MB 2.2. Alexander in place. Patient has not been seen by orthopedics at this time. Patient does have a proximal humerus fracture. 03/26/2020: Patient is complaining of constipation and abdominal fullness. Patient states that she has not had a bowel movement for the last few days. She is feeling uncomfortable. Patient is having difficulty with movement related to fracture. Patient was seen by orthopedics who recommends surgical intervention of a cemented reverse total shoulder arthroplasty of the right shoulder on either 03/28 or 03/[address] Smith Patient was fitted with a new arm sling per orthopedics. Patient remains afebrile, blood pressure 166/93, heart rate 95, respirations 18. Labs are within normal limits 03/27: Afebrile, HR 98, BP 142/83, Pulseox 93% on RA. Repeat CBC is unremarkable. Sodium 135, potassium 4.3, chloride 100, CO2 26, BUN 14 creatinine 0.67. Patient is scheduled for surgery on Friday. She is a Quesada in place. She has not had a bowel movement. Patient was started on lactulose yesterday twice daily. Anticipate need for discharge to subacute rehab. 03/28: Patient is going for surgery today. Anticipate discharge to [facility] tomorrow. She has been afebrile, heart rate 87, blood pressure 172/81, pulse ox 99 % on room air. Repeat lab work ordered for the morning. 03/29: Yesterday, patient underwent a right reverse total shoulder arthroplasty. She has had some trouble with pain control and she complains of difficulty sleeping. Melatonin will be added. Sodium this morning is a 128 most likely secondary to pain. WBC 13.3. Son is at bedside and all questions have been answered. Patient requires a repeat COVID-19 test prior to discharge which will be obtained today. Anticipate discharge to [facility] tomorrow. 03/30: Repeat blood work reveals W BC 13.5, hemoglobin 11.3. Sodium 127 patient started on sodium chloride tablets. Patient has a cough this morning and bringing up some clear yellow sputum. Repeat chest x-ray reveals no acute process. Repeat COVID-19 testing negative. Patient will be discharged to [facility] today in stable condition. Discharge Diagnoses 1 severe rhabdomyolysis 2 severe dehydration 3 post fall with right humerus fracture status post total arthroplasty of the right shoulder today with Dr. Carmichael. 4 mild leukocytosis: With no sign of infection, most likely from rhabdomyolysis mild trauma and bruise 5 abnormal liver function tests: With elevated bilirubin and AST not a clear etiology patient might have Gilbert's syndrome 6 hypertension 7 severe GERD 8 Covid 19 infection not present Discharge plan: Rogelio under the care of Dr. Stearns Impression and plan of care have been directed as dictated by the signing physician. Phyllis Jose nurse practitioner acting as scribe for signing physician. Patient Condition at Discharge: Good Plan - Discharge Summary Discharge Rx Participant: No New Discharge Prescriptions: New Artificial Tears-Hypromellose [Artificial Tear Drops] 2 drops BOTH EYES TID PRN bottle PRN Reason: Dry Eye(S) Lactulose [Cephulac] 10 gm PO BID ml Bisacodyl [Dulcolax] 10 mg PO BID tablet. Melatonin 6 mg PO HS tablet HYDROcodone/APAP 7.5-325MG [[place] 7.5-325] 1 tab PO Q6HR PRN 3 Days #12 tab PRN Reason: Pain Sennosides-Docusate Sodium [Senokot-S] 2 each PO HS PRN tab PRN Reason: Constipation Aspirin 325 mg PO DAILY #30 tab Sodium Chloride Tab 1 gm PO DAILY tab Continue Omeprazole [PriLOSEC] 40 mg PO DAILY Lisinopril [Zestril] 20 mg PO BID Discharge Medication List Lisinopril [Zestril] 20 mg PO BID 08/19/17 [History] Omeprazole [PriLOSEC] 40 mg PO DAILY 08/19/17 [History] Artificial Tears-Hypromellose [Artificial Tear Drops] 2 drops BOTH EYES TID PRN bottle 03/30/20 [Rx] Aspirin 325 mg PO DAILY #30 tab 03/30/20 [Rx] Bisacodyl [Dulcolax] 10 mg PO BID tablet. 03/30/20 [Rx] HYDROcodone/APAP 7.5-325MG [[place] 7.5-325] 1 tab PO Q6HR PRN 3 Days #12 tab 03/30/20 [Rx] Lactulose [Cephulac] 10 gm PO BID ml 03/30/20 [Rx] Melatonin 6 mg PO HS tablet 03/30/20 [Rx] Sennosides-Docusate Sodium [Senokot-S] 2 each PO HS PRN tab 03/30/20 [Rx] Sodium Chloride Tab 1 gm PO DAILY tab 03/30/20 [Rx] Follow up Appointment(s)/Referral(s): Rogelio Patel, [NON-STAFF] - As Needed Ponce Campa MD [Primary Care Provider] - 1 Week (after discharge from [facility]) Patient Instructions/Handouts: Shoulder Arthroplasty (DC) Activity/Diet/Wound Care/Special Instructions: Keep Quesada, to be discontinued in 1-2 days after arrival to [facility] Orthopedic discharge instructions: 1. Keep incision dry and covered, keep covered when showering 2. Utilize arm sling 3. No physical activity with the right upper extremity 4. Plan for follow-up at [facility] in 2 weeks Discharge Disposition: TRANSFER TO SNF/ECF
[2020-03-30 08:47] LABS: HCT 33.1 % (34.0-46.0); HGB 11.3 gm/dL (11.4-16.0); MCH 29.9 pg (25.0-35.0); MCHC 34.2 g/dL (31.0-37.0); MCV 87.5 fL (80.0-100.0); Platelet Count 241 k/uL (150-450); RBC 3.78 m/uL (3.80-5.40); RDW 13.5 % (11.5-15.5); WBC 13.5 k/uL (3.8-10.6)
[2020-03-30 09:11] LABS: African American GFR (CKD) >90 (>60 ml/min/1.73 sqM); Anion Gap 4 mmol/L; Blood Urea Nitrogen 17 mg/dL (7-17); Calcium 8.6 mg/dL (8.4-10.2); Carbon Dioxide 25 mmol/L (22-30); Chloride 98 mmol/L (98-107); Glucose 112 mg/dL (74-99); Non-African American GFR(CKD) 79 (>60 ml/min/1.73 sqM); Sodium 127 mmol/L (137-145)
[2020-03-30] MEDS: HYDROcodone/APAP 7.5-325MG 1 EACH TAB PO PRN ×2 (10:24→16:17)
--- NOTE | 2020-03-30 11:05 | P.PN ---
Subjective Progress Note Date: 03/30/20 Principal diagnosis: 3/4 part proximal humerus fracture Patient seen today at bedside, she is resting comfortably. She denies any chest pain or shortness of breath currently. Objective - Vital Signs Vital signs: Vital Signs Temp 97.9 F 03/30/20 01:39 Pulse 85 03/30/20 01:39 Resp 18 03/30/20 01:39 BP 100/63 03/30/20 01:39 Pulse Ox 95 03/30/20 01:39 Intake & Output 03/29/20 03/30/20 03/30/20 18:59 06:59 18:59 Intake Total 4320 0 Output Total 1700 2000 Balance 2620 -1999 Intake: Intake, IV Titration 0 Amount Sodium Chloride 0.9% 1, 0 000 ml @ 50 mls/hr IV . Q20H TEOFILO Rx#:[id number] Oral 4320 Output: Urine 1700 1999 Other: Voiding Method Indwelling Catheter Indwelling Catheter Indwelling Catheter - Exam Right upper extremity: Postop bandage was removed, incision is clean, dry and intact. Bruising and soft tissue swelling present. Sensory exam to light touch is intact throughout the extremity. She is able to extend and flex the wrist without difficulty. Radial pulses 2+ - Labs CBC & Chem 7: 03/30/20 08:27 03/30/20 07:10 Labs: Abnormal Lab Results - Last 24 Hours (Table) 03/30/20 03/30/20 Range/Units 07:10 08:27 WBC 13.5 H (3.8-10.6) k/uL RBC 3.78 L (3.80-5.40) m/uL Hgb 11.3 L (11.4-16.0) gm/dL Hct 33.1 L (34.0-46.0) % Sodium 127 L (137-145) mmol/L Glucose 112 H (74-99) mg/dL Assessment and Plan Assessment: Imaging: X-rays were reviewed of the pelvis and right hip, no acute fractures or dis locations appreciated. No other osseous abnormality is. Assessment: 3/4 part displaced right proximal humerus fracture Right knee osteoarthritis, right knee contusion Multiple medical comorbidities Plan: Pain control, continue current medication GI and DVT prophylaxis, continue current medication Other certified medical dosimetrist recommendations Pain control Physical therapy evaluation Hopeful discharged to rehab today Time with Patient: Less than 30
[2020-03-30] MEDS ORDERED: SODIUM CHLORIDE TAB 1 GM TAB PO SCH (11:30)
--- NOTE | 2020-03-30 14:51 | XR ---
EXAMINATION TYPE: XR chest 1V portable DATE OF EXAM: 03/30/2020 COMPARISON: Prior chest x-ray 03/24/2020 HISTORY: Cough TECHNIQUE: Single frontal view of the chest is obtained. FINDINGS: There is no focal air space opacity, pleural effusion, or pneumothorax seen. The cardiac silhouette size is within normal limits. Lung volumes are low. Some linear strand-like densities may reflect some atelectasis or scarring within the lower lobes. The osseous structures are intact, sivakumar ent is status post right shoulder arthroplasty, the aorta is dense. IMPRESSION: No acute process.
[2020-03-30 15:45] VITALS: RESP 17
[2020-03-30 15:47] VITALS: BP 99/63; PULSE 95; TEMP 98.5
[2020-03-30] MEDS: SODIUM CHLORIDE 0.9% 1,000 ML IV SCH (17:02)
== END 2020-03-30 17:52 | DRG 483 ==
LOC: EC 13:09 → 4SSUR 14:53
PROVIDERS: ADMIT Internal Medicine Geriatric Medicine; ATTEND Internal Medicine Geriatric Medicine
PROC: 0RRJ00Z Replacement of Right Shoulder Joint with Reverse Ball and Socket Synthetic Substitute, Open Approach (ICD-10-PCS; principal; 2020-03-28 08:00)
DX: S42.241A 4-part fracture of surgical neck of right humerus, initial encounter for closed fracture (principal); M62.82 Rhabdomyolysis; E87.1 Hypo-osmolality and hyponatremia; Z68.41 Body mass index [BMI] 40.0-44.9, adult; D72.829 Elevated white blood cell count, unspecified; E86.0 Dehydration; F41.9 Anxiety disorder, unspecified; I10 Essential (primary) hypertension; K21.9 Gastro-esophageal reflux disease without esophagitis; K59.00 Constipation, unspecified; M17.11 Unilateral primary osteoarthritis, right knee; S80.01XA Contusion of right knee, initial encounter; E80.4 Gilbert syndrome; W01.0XXA Fall on same level from slipping, tripping and stumbling without subsequent striking against object, initial encounter; Z79.899 Other long term (current) drug therapy; Z90.710 Acquired absence of both cervix and uterus; E66.01 Morbid (severe) obesity due to excess calories; Z88.2 Allergy status to sulfonamides; Z88.8 Allergy status to other drugs, medicaments and biological substances; Z11.59 Encounter for screening for other viral diseases; Z60.2 Problems related to living alone; E55.9 Vitamin D deficiency, unspecified; R26.9 Unspecified abnormalities of gait and mobility
CPT/HCPCS: 36415; 64415; 70450; 71045; 72125; 73502; 76942; 80048; 80053; 81001; 82550; 82553; 83605; 83735; 85025; 85027; 85610; 85730; 86891; 87635; 88305; 88311; 90471; 90715; 93005; 96361; 96374; 96376; 99285

== ENCOUNTER 2020-06-28 15:15 | Emergency (ER) | payer MEDICARE ==
[2020-06-28 15:27] VITALS: TEMP 98.9
[2020-06-28] MEDS ORDERED: ALPRAZolam 0.25 MG TAB PO STA (15:53)
[2020-06-28 16:16] LABS: Basophils # (A) 0.1 k/uL (0-0.2); Basophils % (A) 1 %; Eosinophils # (A) 0.1 k/uL (0-0.7); Eosinophils % (A) 1 %; HCT 45.6 % (34.0-46.0); Lymphocytes # (A) 1.9 k/uL (1.0-4.8); Lymphocytes % (A) 18 %; MCH 27.9 pg (25.0-35.0); MCV 84.6 fL (80.0-100.0); Mean Platelet Volume 7.8; Monocytes # (A) 0.6 k/uL (0-1.0); Monocytes % (A) 5 %; Neutrophils # (A) 7.9 k/uL (1.3-7.7); Neutrophils % (A) 75 %; Platelet Count 321 k/uL (150-450); RBC 5.39 m/uL (3.80-5.40); RDW 13.2 % (11.5-15.5); WBC 10.6 k/uL (3.8-10.6)
[2020-06-28 16:26] LABS: ALT 16 U/L (4-34); AST 21 U/L (14-36); African American GFR (CKD) >90 (>60 ml/min/1.73 sqM); Albumin 4.6 g/dL (3.5-5.0); Alkaline Phosphatase 80 U/L (38-126); Anion Gap 11 mmol/L; Blood Urea Nitrogen 13 mg/dL (7-17); Calcium 10.4 mg/dL (8.4-10.2); Carbon Dioxide 21 mmol/L (22-30); Chloride 104 mmol/L (98-107); Glucose 115 mg/dL (74-99); Non-African American GFR(CKD) 84 (>60 ml/min/1.73 sqM); Potassium 4.3 mmol/L (3.5-5.1); Sodium 136 mmol/L (137-145); Total Bilirubin 0.5 mg/dL (0.2-1.3); Total Protein 7.5 g/dL (6.3-8.2)
[2020-06-28 16:47] VITALS: RESP 18
[2020-06-28] MEDS ORDERED: ACETAMINOPHEN TAB 500 MG TAB PO STA (17:52)
--- NOTE | 2020-06-28 18:00 | ED ---
Abdominal Pain HPI - General Chief Complaint: Abdominal Pain Stated Complaint: Mental Health Time Seen by Provider: 06/28/20 15:33 Source: patient Mode of arrival: wheelchair Limitations: no limitations - History of Present Illness Initial Comments: Patient is 79-year-old female presenting to the emergency department with chief complaint of withdrawal. Son is also present in the room to answer any additional questions. She states the patient had shoulder surgery approximately 3 months ago for [place]. The son states that after surgery, patient was transferred to inpatient rehabilitation where she was prescribed 0.25 mg Xanax twice a day and has been taking it for approximately 3 months. States that 2 weeks ago she was discharged home and has been doing great with outpatient physical and occupational therapy, however her primary care physician decided to completely stop the Xanax and start her on Paxil. 3 days after the change, patient began to withdrawal according to the son. She has not been sleeping well her anxiety has been "through the roof". She's also been having poor appetite with occasional abdominal pain which she believes is secondary to anxiety. She is denying any homicidal, suicidal thoughts or ideations. - Related Data Home Medications Medication Instructions Recorded Confirmed Omeprazole [PriLOSEC] 40 mg PO BID 08/19/17 06/28/20 lisinopriL [Zestril] 20 mg PO BID 08/19/17 06/28/20 Acetaminophen Tab [Tylenol Tab] 1,000 mg PO Q6H PRN 06/28/20 06/28/20 HYDROcodone/APAP 7.5-325MG [[place] 1 tab PO BID 06/28/20 06/28/20 7.5-325] Meclizine [Antivert] 12.5 mg PO TID PRN 06/28/20 06/28/20 Melatonin 5 mg PO HS PRN 06/28/20 06/28/20 Prevagen 1 cap PO DAILY 06/28/20 06/28/20 Vitamin D3(Unknown Dose) 1 tab PO DAILY 06/28/20 06/28/20 Previous Rx's Medication Instructions Recorded ALPRAZolam [Xanax] 0.5 mg PO BID PRN #6 tablet 06/28/20 Ondansetron Odt [Zofran Odt] 4 mg PO Q8HR PRN #10 tab 06/28/20 Allergies Allergy/AdvReac Type Severity Reaction Status Date / Time iodine Allergy Rash/Hives Verified 06/28/20 18:10 ranitidine [From Zantac] Allergy Rash/Hives Verified 06/28/20 18:10 Sulfa (Sulfonamide Allergy Rash/Hives Verified 06/28/20 18:10 Antibiotics) Review of Systems ROS Statement: Those systems with pertinent positive or pertinent negative responses have been documented in the HPI. ROS Other: All systems not noted in ROS Statement are negative. Past Medical History Past Medical History: GERD/Reflux, Hypertension, Osteoarthritis (OA) Additional Past Medical History / Comment(s): vitamin D Deficiency, Anemia History of Any Multi-Drug Resistant Organisms: None Reported Past Surgical History: Hysterectomy Past Anesthesia/Blood Transfusion Reactions: No Reported Reaction Past Psychological History: Anxiety Smoking Status: Never smoker Past Alcohol Use History: None Reported Past Drug Use History: None Reported - Past Family History Mother Family Medical History: Cancer General Exam Limitations: no limitations General appearance: alert, in no apparent distress, anxious, obese Head exam: Present: atraumatic, normocephalic, normal inspection Eye exam: Present: normal appearance, PERRL, EOMI Pupils: Present: normal accommodation ENT exam: Present: normal exam, normal oropharynx, mucous membranes moist Neck exam: Present: normal inspection, full ROM. Absent: tenderness Respiratory exam: Present: normal lung sounds bilaterally. Absent: respiratory distress, wheezes, rales Cardiovascular Exam: Present: regular rate, normal rhythm, normal heart sounds GI/Abdominal exam: Present: soft. Absent: distended, tenderness, guarding, rebound, rigid Extremities exam: Present: normal inspection, full ROM, normal capillary refill. Absent: tenderness Back exam: Present: normal inspection, full ROM. Absent: tenderness, CVA tenderness (R), CVA tenderness (L) Neurological exam: Present: alert, oriented X3 Psychiatric exam: Present: normal affect, anxious Skin exam: Present: warm, dry, intact, normal color Course Vital Signs 06/28/20 06/28/20 15:22 16:46 Temperature 98.9 F Pulse Rate 98 78 Respiratory 22 18 Rate Blood Pressure 175/118 146/97 O2 Sat by Pulse 97 97 Oximetry Medical Decision Making - Medical Decision Making Patient is a 79-year-old female presenting to the emergency department for withdrawal. On physical examination, patient is very anxious his racing thought s and hyperventilating. Patient is not taken her Xanax for approximately 7 days which she was taken twice a day for the past 3 months. Patient appears to be having benzodiazepine withdrawal. Patient was given 0.25 mg of Xanax. CBC is remarkable. CMP reveals mild hyponatremia but otherwise unremarkable. On reevaluation, patient is much calmer. She does report improvement in her anxiety but does report some nausea. Son states that they have a visiting physician coming to their house tomorrow. Patient will be discharged with 3 days of Xanax and advised the patient and her son to take the medication sparingly. She was advised to continue taking her Paxil. Her vitals have improved. Strict return parameters were thoroughly discussed with son and patient were understanding and agreeable. Case discussed with physician. - Lab Data Result diagrams: 06/28/20 16:01 06/28/20 16:01 Lab Results 06/28/20 06/28/20 Range/Units 16:01 16:01 WBC 10.6 (3.8-10.6) k/uL RBC 5.39 (3.80-5.40) m/uL Hgb 15.0 (11.4-16.0) gm/dL Hct 45.6 (34.0-46.0) % MCV 84.6 (80.0-100.0) fL MCH 27.9 (25.0-35.0) pg MCHC 33.0 (31.0-37.0) g/dL RDW 13.2 (11.5-15.5) % Plt Count 321 (150-450) k/uL Neutrophils % 75 % Lymphocytes % 18 % Monocytes % 5 % Eosinophils % 1 % Basophils % 1 % Neutrophils # 7.9 H (1.3-7.7) k/uL Lymphocytes # 1.9 (1.0-4.8) k/uL Monocytes # 0.6 (0-1.0) k/uL Eosinophils # 0.1 (0-0.7) k/uL Basophils # 0.1 (0-0.2) k/uL Sodium 136 L (137-145) mmol/L Potassium 4.3 (3.5-5.1) mmol/L Chloride 104 (98-107) mmol/L Carbon Dioxide 21 L (22-30) mmol/L Anion Gap 11 mmol/L BUN 13 (7-17) mg/dL Creatinine 0.67 (0.52-1.04) mg/dL Est GFR (CKD-EPI)AfAm >90 (>60 ml/min/1.73 sqM) Est GFR (CKD-EPI)NonAf 84 (>60 ml/min/1.73 sqM) Glucose 115 H (74-99) mg/dL Calcium 10.4 H (8.4-10.2) mg/dL Total Bilirubin 0.5 (0.2-1.3) mg/dL AST 21 (14-36) U/L ALT 16 (4-34) U/L Alkaline Phosphatase 80 (38-126) U/L Total Protein 7.5 (6.3-8.2) g/dL Albumin 4.6 (3.5-5.0) g/dL Disposition Clinical Impression: Acute anxiety, Benzodiazepine withdrawal Disposition: HOME SELF-CARE Condition: Stable Instructions (If sedation given, give patient instructions): Alprazolam (By mouth), Narcotic Withdrawal (ED) Additional Instructions: Follow-up with her primary care physician tomorrow. Take prescribed medication as directed. Return to emergency department if symptoms worsen. Prescriptions: ALPRAZolam [Xanax] 0.5 mg PO BID PRN #6 tablet PRN Reason: Anxiety Ondansetron Odt [Zofran Odt] 4 mg PO Q8HR PRN #10 tab PRN Reason: Nausea Is patient prescribed a controlled substance at d/c from ED?: No Referrals: Ponce Campa MD [Primary Care Provider] - 1-2 days Time of Disposition: 18:31
[2020-06-28] MEDS ORDERED: ONDANSETRON 4 MG/2 ML VIAL IVP STA (18:29)
[2020-06-28] MEDS ORDERED: ALPRAZolam 0.5 MG TAB PO STA (18:29)
[2020-06-28 19:04] VITALS: BP 151/85; PULSE 89
== END 2020-06-28 19:17 | disposition home or self-care (01) ==
LOC: EC 15:15
DX: F13.239 Sedative, hypnotic or anxiolytic dependence with withdrawal, unspecified (principal); F41.9 Anxiety disorder, unspecified; E87.1 Hypo-osmolality and hyponatremia; K21.9 Gastro-esophageal reflux disease without esophagitis; I10 Essential (primary) hypertension; Z79.899 Other long term (current) drug therapy; Z88.2 Allergy status to sulfonamides; Z91.048 Other nonmedicinal substance allergy status; Z88.8 Allergy status to other drugs, medicaments and biological substances
CPT/HCPCS: 36415; 80053; 85025; 99284; 96374; J2405

== ENCOUNTER 2022-08-10 17:21 | Emergency (ER) | payer MEDICARE ==
[2022-08-10 18:27] LABS: Appearance,Urine Clear (Clear); Bilirubin,Urine Negative (Negative); Blood,Urine Negative (Negative); Color,Urine Colorless; Glucose,Urine (UA) Negative (Negative); Ketones,Urine Negative (Negative); Leukocyte Esterase,Urine Negative (Negative); Nitrite,Urine Negative (Negative); PH, Urine 7.5 (5.0-8.0); Protein,Urine Negative (Negative); Specific Gravity,Urine 1.003 (1.001-1.035); Urobilinogen,Urine <2.0 mg/dL (<2.0)
[2022-08-10] MEDS ORDERED: SODIUM CHLORIDE 0.9% 1,000 ML IV STA (20:43)
[2022-08-10] MEDS ORDERED: ASPIRIN 81 MG PO STA (20:43)
--- NOTE | 2022-08-10 20:51 | ED ---
General Adult HPI - General Chief complaint: Chest Pain Stated complaint: chest pain Time Seen by Provider: 08/10/22 20:26 Source: patient, RN notes reviewed Mode of arrival: wheelchair Limitations: no limitations - History of Present Illness Initial comments: 81-year-old female presents to the emergency Department with complaints of chest pressure, onset this morning. Patient states the chest pressure was more intense this morning and has since eased to a soreness. Discomfort is located on the left side of her chest with radiation across her chest. No aggravating or alleviating factors associated with this pain. Patient states she took 1 baby aspirin prior to arrival as well as her blood pressure medicine. States she feels her blood pressure has been poorly managed recently. Denies fever, chills, shortness of breath, abdominal pain, nausea, vomiting, diarrhea, or dysuria. No cardiac history. - Related Data Home Medications Medication Instructions Recorded Confirmed Omeprazole [PriLOSEC] 40 mg PO DAILY PRN 08/19/17 08/10/22 Melatonin 5 mg PO HS PRN 06/28/20 08/10/22 Prevagen 1 cap PO DAILY 06/28/20 08/10/22 Biotin 5 mg PO DAILY 08/10/22 08/10/22 Cholecalciferol [Vitamin D3 (25 50 mcg PO DAILY 08/10/22 08/10/22 Mcg = 1000 Iu)] lisinopriL 40 mg PO DAILY 08/10/22 08/10/22 Allergies Allergy/AdvReac Type Severity Reaction Status Date / Time iodine Allergy Rash/Hives Verified 08/10/22 21:57 ranitidine [From Zantac] Allergy Rash/Hives Verified 08/10/22 21:57 Sulfa (Sulfonamide Allergy Rash/Hives Verified 08/10/22 21:57 Antibiotics) Review of Systems ROS Statement: Those systems with pertinent positive or pertinent negative responses have been documented in the HPI. ROS Other: All systems not noted in ROS Statement are negative. Past Medical History Past Medical History: GERD/Reflux, Hypertension, Osteoarthritis (OA) Additional Past Medical History / Comment(s): vitamin D Deficiency, Anemia History of Any Multi-Drug Resistant Organisms: None Reported Past Surgical History: Hysterectomy Past Anesthesia/Blood Transfusion Reactions: No Reported Reaction Past Psychological History: Anxiety Smoking Status: Never smoker Past Alcohol Use History: None Reported Past Drug Use History: None Reported - Past Family History Mother Family Medical History: Cancer General Exam Limitations: no limitations General appearance: alert, in no apparent distress Eye exam: Present: normal appearance, PERRL, EOMI. Absent: scleral icterus, conjunctival injection ENT exam: Present: mucous membranes moist Neck exam: Present: normal inspection, full ROM. Absent: tenderness, meningismus, lymphadenopathy Respiratory exam: Present: normal lung sounds bilaterally. Absent: respiratory distress, wheezes, rales, rhonchi, stridor, chest wall tenderness Cardiovascular Exam: Present: regular rate, normal rhythm, normal heart sounds. Absent: systolic murmur, diastolic murmur, rubs, gallop, clicks GI/Abdominal exam: Present: soft, normal bowel sounds. Absent: distended, tenderness, guarding, rebound, rigid Neurological exam: Present: alert, oriented X3 Psychiatric exam: Present: normal affect, normal mood Skin exam: Present: warm, dry, intact, normal color, other (Skin is tenting) Course Vital Signs 08/10/22 08/10/22 08/10/22 17:32 20:18 21:32 Temperature 98.1 F 98.1 F Pulse Rate 104 H 109 H 81 Pulse Rate [ 109 H Registered Nurse Bone Marrow Transplant ] Respiratory 18 19 17 Rate Blood Pressure 185/91 196/106 193/82 O2 Sat by Pulse 96 99 99 Oximetry 08/10/22 08/11/22 23:33 01:42 Temperature 97.7 F Pulse Rate 86 80 Pulse Rate [ Registered Nurse Bone Marrow Transplant ] Respiratory 17 18 Rate Blood Pressure 156/86 149/88 O2 Sat by Pulse 95 97 Oximetry - Reevaluation(s) Reevaluation #1: 08/10/22 22:30 Difficulty obtaining IV access therefore laboratory studies were delayed. 08/11/22 00:00 Upon reevaluation, patient is up to the bathroom and ambulatory without difficulty. States left-sided chest discomfort persists, but is not worsened by activity. No shortness of breath or difficulty breathing. Results reviewed. Patient is reassured. Discussed hospital admission versus discharge home. Patient's son does suggest that the patient has been increasingly anxious due to to stressful family situation in which a son was recently diagnosed with cancer and will undergo surgery Friday. When asked if she feels that her chest discomfort could be anxious in nature, she thinks that that is likely the case. Shared decision making with patient, her son, and this provider, she was discharged home with strict return parameters. Medical Decision Making - Medical Decision Making This is an 81-year-old female with a past medical history of hypertension and right shoulder surgery presents to the emergency department for evaluation of left sided chest pain. Upon exam, patient is mildly anxious but in no acute distress. She is initially hypertensive and mildly tachycardic, though this resolved on its own. Patient was placed on telemetry monitoring and EKG was obtained showing sinus rhythm with no ectopy or acute changes concerning for CA. Patient was given 4 baby aspirin. Laboratory studies were obtained and are unremarkable. Troponin negative. BNP 323. Discussed use sublingual nitro to further evaluate cardiac nature of this pain, however upon further and in discussion with patient, it became clear that this was likely anxious in nature therefore patient was given a Xanax. In shared decision making, patient will be discharged home with strict return parameters. Encouraged to utilize supportive family for stress management and to follow-up with her PCP for repeat evaluation of blood pressure medication regimen. Patient and son verbalized understanding and agreed with this plan. Attending: Etta. - Lab Data Result diagrams: 08/10/22 22:56 08/10/22 22:56 Lab Results 08/10/22 08/10/22 08/10/22 Range/Units 18:08 22:56 22:56 WBC 9.3 (3.8-10.6) k/uL RBC 5.02 (3.80-5.40) m/uL Hgb 14.9 (11.4-16.0) gm/dL Hct 43.4 (34.0-46.0) % MCV 86.4 (80.0-100.0) fL MCH 29.7 (25.0-35.0) pg MCHC 34.4 (31.0-37.0) g/dL RDW 13.2 (11.5-15.5) % Plt Count 247 (150-450) k/uL MPV 8.2 Neutrophils % 65 % Lymphocytes % 25 % Monocytes % 4 % Eosinophils % 2 % Basophils % 1 % Neutrophils # 6.1 (1.3-7.7) k/uL Lymphocytes # 2.4 (1.0-4.8) k/uL Monocytes # 0.4 (0-1.0) k/uL Eosinophils # 0.2 (0-0.7) k/uL Basophils # 0.1 (0-0.2) k/uL PT 10.6 (9.0-12.0) sec INR 1.0 (<1.2) APTT 25.3 (22.0-30.0) sec Sodium (137-145) mmol/L Potassium (3.5-5.1) mmol/L Chloride (98-107) mmol/L Carbon Dioxide (22-30) mmol/L Anion Gap mmol/L BUN (7-17) mg/dL Creatinine (0.52-1.04) mg/dL Est GFR (CKD-EPI)AfAm (>60 ml/min/1.73 sqM) Est GFR (CKD-EPI)NonAf (>60 ml/min/1.73 sqM) Glucose (74-99) mg/dL Calcium (8.4-10.2) mg/dL Magnesium (1.6-2.3) mg/dL Total Bilirubin (0.2-1.3) mg/dL AST (14-36) U/L ALT (4-34) U/L Alkaline Phosphatase (38-126) U/L Troponin I (0.000-0.034) ng/mL NT-Pro-B Natriuret Pep pg/mL Total Protein (6.3-8.2) g/dL Albumin (3.5-5.0) g/dL Urine Color Colorless Urine Appearance Clear (Clear) Urine pH 7.5 (5.0-8.0) Ur Specific [place] 1.003 (1.001-1.035) Urine Protein Negative (Negative) Urine Glucose (UA) Negative (Negative) Urine Ketones Negative (Negative) Urine Blood Negative (Negative) Urine Nitrite Negative (Negative) Urine Bilirubin Negative (Negative) Urine Urobilinogen <2.0 (<2.0) mg/dL Ur Leukocyte Esterase Negative (Negative) 08/10/22 08/10/22 08/10/22 Range/Units 22:56 22:56 22:56 WBC (3.8-10.6) k/uL RBC (3.80-5.40) m/uL Hgb (11.4-16.0) gm/dL Hct (34.0-46.0) % MCV (80.0-100.0) fL MCH (25.0-35.0) pg MCHC (31.0-37.0) g/dL RDW (11.5-15.5) % Plt Count (150-450) k/uL MPV Neutrophils % % Lymphocytes % % Monocytes % % Eosinophils % % Basophils % % Neutrophils # (1.3-7.7) k/uL Lymphocytes # (1.0-4.8) k/uL Monocytes # (0-1.0) k/uL Eosinophils # (0-0.7) k/uL Basophils # (0-0.2) k/uL PT (9.0-12.0) sec INR (<1.2) APTT (22.0-30.0) sec Sodium 137 (137-145) mmol/L Potassium 4.4 (3.5-5.1) mmol/L Chloride 105 (98-107) mmol/L Carbon Dioxide 25 (22-30) mmol/L Anion Gap 7 mmol/L BUN 17 (7-17) mg/dL Creatinine 0.68 (0.52-1.04) mg/dL Est GFR (CKD-EPI)AfAm >90 (>60 ml/min/1.73 sqM) Est GFR (CKD-EPI)NonAf 82 (>60 ml/min/1.73 sqM) Glucose 91 (74-99) mg/dL Calcium 9.9 (8.4-10.2) mg/dL Magnesium 2.1 (1.6-2.3) mg/dL Total Bilirubin 0.4 (0.2-1.3) mg/dL AST 20 (14-36) U/L ALT 19 (4-34) U/L Alkaline Phosphatase 81 (38-126) U/L Troponin I <0.012 (0.000-0.034) ng/mL NT-Pro-B Natriuret Pep 323 pg/mL Total Protein 7.3 (6.3-8.2) g/dL Albumin 4.5 (3.5-5.0) g/dL Urine Color Urine Appearance (Clear) Urine pH (5.0-8.0) Ur Specific [place] (1.001-1.035) Urine Protein (Negative) Urine Glucose (UA) (Negative) Urine Ketones (Negative) Urine Blood (Negative) Urine Nitrite (Negative) Urine Bilirubin (Negative) Urine Urobilinogen (<2.0) mg/dL Ur Leukocyte Esterase (Negative) - EKG Data EKG shows normal: sinus rhythm Rate: normal EKG Comments: EKG obtained at 1738 shows sinus rhythm with left ventricular hypertrophy and ST change. Ventricular rate 92, ME interval 142, QRS duration 76, QT/QTC 324/373. Interpretation abnormal ECG. - Radiology Data Radiology results: report reviewed, image reviewed Interpreted by me: Direct visualization of two-view chest x-ray shows no focal areas of consolidation or infiltrate. Two-view chest x-ray was obtained. Report was reviewed in its entirety. Impression per Dr. Francis is no active cardiopulmonary disease. No change. Disposition Clinical Impression: Anxiety, Non-cardiac chest pain Disposition: HOME SELF-CARE Condition: Stable Instructions (If sedation given, give patient instructions): Chest Pain (ED), Anxiety (ED) Additional Instructions: I think it is very important that you establish with a PCP as soon as possible. Continue taking your blood pressure medication as prescribed. Consider modifications that you can make to improve sleep habits. Return to the emergency department with any new, worsening, or concerning symptoms. Is patient prescribed a controlled substance at d/c from ED?: No Referrals: None,Stated [Primary Care Provider] - 1-2 days Time of Disposition: 00:58
--- NOTE | 2022-08-10 22:01 | XR ---
EXAMINATION TYPE: XR chest 2V DATE OF EXAM: 08/10/2022 COMPARISON: 03/30/2020 HISTORY: Chest pain TECHNIQUE: FINDINGS: There is no heart failure nor confluent pneumonic infiltrate. Costophrenic angles are clear . There is right shoulder prosthesis. There are chest leads. There are no hilar masses. IMPRESSION: No active cardiopulmonary disease. No change.
[2022-08-10 23:03] LABS: Basophils # (A) 0.1 k/uL (0-0.2); Basophils % (A) 1 %; Eosinophils # (A) 0.2 k/uL (0-0.7); Eosinophils % (A) 2 %; HCT 43.4 % (34.0-46.0); HGB 14.9 gm/dL (11.4-16.0); Lymphocytes # (A) 2.4 k/uL (1.0-4.8); Lymphocytes % (A) 25 %; MCH 29.7 pg (25.0-35.0); MCHC 34.4 g/dL (31.0-37.0); MCV 86.4 fL (80.0-100.0); Mean Platelet Volume 8.2; Monocytes # (A) 0.4 k/uL (0-1.0); Monocytes % (A) 4 %; Neutrophils # (A) 6.1 k/uL (1.3-7.7); Neutrophils % (A) 65 %; Platelet Count 247 k/uL (150-450); RBC 5.02 m/uL (3.80-5.40); RDW 13.2 % (11.5-15.5); WBC 9.3 k/uL (3.8-10.6)
[2022-08-10 23:15] LABS: ALT 19 U/L (4-34); AST 20 U/L (14-36); African American GFR (CKD) >90 (>60 ml/min/1.73 sqM); Albumin 4.5 g/dL (3.5-5.0); Alkaline Phosphatase 81 U/L (38-126); Anion Gap 7 mmol/L; Blood Urea Nitrogen 17 mg/dL (7-17); Calcium 9.9 mg/dL (8.4-10.2); Carbon Dioxide 25 mmol/L (22-30); Chloride 105 mmol/L (98-107); Glucose 91 mg/dL (74-99); Magnesium 2.1 mg/dL (1.6-2.3); Non-African American GFR(CKD) 82 (>60 ml/min/1.73 sqM); Potassium 4.4 mmol/L (3.5-5.1); Sodium 137 mmol/L (137-145); Total Bilirubin 0.4 mg/dL (0.2-1.3); Total Protein 7.3 g/dL (6.3-8.2)
[2022-08-10 23:25] LABS: Partial Thromboplastin Time 25.3 sec (22.0-30.0); Prothrombin Time 10.6 sec (9.0-12.0)
[2022-08-10 23:35] VITALS: TEMP 97.7
[2022-08-11] MEDS ORDERED: NITROGLYCERIN SL TABS 0.4 MG TAB SUBLINGUAL STA (00:26)
[2022-08-11] MEDS ORDERED: ALPRAZolam 0.25 MG TAB PO STA (00:56)
[2022-08-11 01:43] VITALS: BP 149/88; PULSE 80; RESP 18
== END 2022-08-11 01:56 | disposition home or self-care (01) ==
LOC: EC 17:21
DX: F41.9 Anxiety disorder, unspecified (principal); K21.9 Gastro-esophageal reflux disease without esophagitis; I10 Essential (primary) hypertension; Z79.899 Other long term (current) drug therapy; Z88.8 Allergy status to other drugs, medicaments and biological substances; Z88.2 Allergy status to sulfonamides
CPT/HCPCS: 36415; 71046; 80053; 81003; 83735; 83880; 84484; 85025; 85610; 85730; 93005; 96360; 96361; 99285

== ENCOUNTER 2023-01-17 23:51 | Emergency (ER) | payer MEDICARE ==
[2023-01-17 23:59] VITALS: TEMP 97.4
[2023-01-18] MEDS ORDERED: SODIUM CHLORIDE 0.9% 500 ML 500 ML IV STA (00:34)
--- NOTE | 2023-01-18 00:36 | ED ---
Abdominal Pain HPI - General Chief Complaint: Abdominal Pain Stated Complaint: Chest Pain, Shortness of Breath, Constipation Time Seen by Provider: 01/18/23 00:07 Source: patient, RN notes reviewed, old records reviewed Mode of arrival: wheelchair Limitations: no limitations - History of Present Illness Initial Comments: This is a nontoxic-appearing 82-year-old female that presents to the emergency room with complaints of left sided abdominal pain that is sharp in nature. States that she thinks she is constipated. Last bowel movement was at 10:00 this morning small golfball sized. States that she has not been passing gas and is concerned for a bowel obstruction. She states she also has severe anxiety. MD Complaint: abdominal pain -: hour(s) (14) Location: LUQ, LLQ Radiation: none Severity scale (1-10): 9 Quality: sharp Consistency: intermittent Improves With: nothing Worsens With: other (palpation) Context: other (Constipation last bowel movement 10:00 this morning small golfball sized) Associated Symptoms: denies other symptoms - Related Data Home Medications Medication Instructions Recorded Confirmed Omeprazole [PriLOSEC] 40 mg PO DAILY PRN 08/19/17 08/10/22 Melatonin 5 mg PO HS PRN 06/28/20 08/10/22 Prevagen 1 cap PO DAILY 06/28/20 08/10/22 Biotin 5 mg PO DAILY 08/10/22 08/10/22 Cholecalciferol [Vitamin D3 (25 50 mcg PO DAILY 08/10/22 08/10/22 Mcg = 1000 Iu)] lisinopriL 40 mg PO DAILY 08/10/22 08/10/22 Previous Rx's Medication Instructions Recorded Amoxic-Pot Clav 875-125Mg 1 tab PO Q12HR 1 Days #14 tab 01/18/23 [Augmentin 875-125] Allergies Allergy/AdvReac Type Severity Reaction Status Date / Time iodine Allergy Rash/Hives Verified 01/17/23 23:53 ranitidine [From Zantac] Allergy Rash/Hives Verified 01/17/23 23:53 Sulfa (Sulfonamide Allergy Rash/Hives Verified 01/17/23 23:53 Antibiotics) Review of Systems ROS Statement: Those systems with pertinent positive or pertinent negative responses have been documented in the HPI. ROS Other: All systems not noted in ROS Statement are negative. Past Medical History Past Medical History: GERD/Reflux, Hypertension, Osteoarthritis (OA) Additional Past Medical History / Comment(s): vitamin D Deficiency, Anemia History of Any Multi-Drug Resistant Organisms: None Reported Past Surgical History: Hysterectomy Past Anesthesia/Blood Transfusion Reactions: No Reported Reaction Past Psychological History: Anxiety Smoking Status: Never smoker Past Alcohol Use History: None Reported Past Drug Use History: None Reported - Past Family History Mother Family Medical History: Cancer General Exam Limitations: no limitations General appearance: alert, in no apparent distress Head exam: Present: atraumatic, normocephalic, normal inspection Eye exam: Present: normal appearance. Absent: scleral icterus, conjunctival injection, periorbital swelling, periorbital tenderness ENT exam: Present: mucous membranes moist Neck exam: Present: full ROM. Absent: tenderness, meningismus Respiratory exam: Absent: respiratory distress, accessory muscle use Cardiovascular Exam: Present: regular rate GI/Abdominal exam: Present: soft, tenderness (LUQ LLQ), normal bowel sounds. Absent: distended, guarding, rigid Extremities exam: Present: normal capillary refill, pedal edema (+1). Absent: tenderness Back exam: Present: normal inspection, full ROM. Absent: tenderness, CVA tenderness (R), CVA tenderness (L), rash noted Neurological exam: Present: alert, oriented X3 Psychiatric exam: Present: normal affect, normal mood, anxious Skin exam: Present: warm, dry, normal color. Absent: cyanosis, diaphoretic, petechiae, pallor Course Vital Signs 01/17/23 01/18/23 23:54 08:47 Temperature 97.4 F L Pulse Rate 77 80 Respiratory 28 H 18 Rate Blood Pressure 190/86 150/78 O2 Sat by Pulse 99 100 Oximetry Medical Decision Making - Medical Decision Making 82-year-old female presents with complaints of left sided abdominal pain that is sharp in nature. Last bowel movement was at 10:00 this morning but states has not been passing gas and she is concerned she may have a bowel obstruction. Labs show leukocytosis of 13.4 with a left shift. Lactic acid 2.8. IV fluids were given and repeat lactic acid 0.8. Troponin negative at 0.012. EKG interpreted by me shows sinus rhythm with ventricular rate of 73, [place] interval 0.157, QRS 0.81, QTC 0.414. No old EKG to compare. Patient was updated on lab results. Continues to feel as though she needs to have a bowel movement, states not able to pass gas. No Denies fevers, nausea or vomiting. Vital signs are stable. Patient appears in no acute distress. CT pending, case signed out to Dr. Zepeda disposition Was pt. sent in by a medical professional or institution (, PA, MANUAL ARTS TEACHER, urgent care, hospital, or fdc...) When possible be specific @ -[No] Did you speak to anyone other than the patient for history (EMS, parent, family, police, friend...)? What history was obtained from this source @ -[No] Did you review nursing and triage notes (agree or disagree)? Why? @ -[I reviewed and agree with nursing and triage notes] Were old charts reviewed (outside hosp., previous admission, EMS record, old EKG, old radiological studies, urgent care reports/EKG's, fdc records)? Report findings @ -[No old charts were reviewed] Differential Diagnosis (chest pain, altered mental status, abdominal pain women, abdominal pain men, vaginal bleeding, weakness, fever, dyspnea, syncope, headache, dizziness, GI bleed, back pain, seizure, CVA, palpatations, mental health, musculoskeletal)? @ -Differential Abdominal Pain Women: Appendicitis, Cholecystitis, diverticulosis, ischemic bowel, pancreatitis, hepatitis, UTI, gastroenteritis, AAA, incarcerated hernia, bowel obstruction, constipation, inflammatory bowel, hepatitis, peptic ulcer disease, splenic infarction, perforated viscus, vulvitis, ovarian torsion, PID, kidney stone, placenta abruption, this is not meant to be an all-inclusive list EKG interpreted by me (3pts min.). @ - EKG interpreted by me shows sinus rhythm with ventricular rate of 73, [place] interval 0.157, QRS 0.81, QTC 0.414. No old EKG to compare. X-rays interpreted by me (1pt min.). @ -[None done] CT interpreted by me (1pt min.). @ -pending, case turned over to Dr Zepeda for dispo U/S interpreted by me (1pt. min.). @ -[None done] What testing was considered but not performed or refused? (CT, X-rays, U/S, labs)? Why? @ -[None] What meds were considered but not given or refused? Why? @ -[None] Did you discuss the management of the patient with other professionals (professionals i.e. , PA, MANUAL ARTS TEACHER, lab, RT, psych nurse, clinical social work aide, core stripper, teacher, traffic control officer, director of casework department)? Give summary @ -[No] Was smoking cessation discussed for >3mins.? @ -[No] Was critical care preformed (if so, how long)? @ -[No] Were there social determinants of health that impacted care today? How? (Homelessness, low income, unemployed, alcoholism, drug addiction, transportation, low edu. Level, literacy, decrease access to med. care, halfway, rehab)? @ -[No] Was there de-escalation of care discussed even if they declined (Discuss DNR or withdrawal of care, Hospice)? DNR status @ -[No] What co-morbidities impacted this encounter? (DM, HTN, Smoking, COPD, CAD, Cancer, CVA, ARF, Chemo, Hep., AIDS, mental health diagnosis, sleep apnea, morbid obesity)? @ -Patient has history of hypertension, GERD, anxiety and anemia. Was patient admitted / discharged? Hospital course, mention meds given and route, prescriptions, significant lab abnormalities, going to OR and other pert inent info. @ -[hospital course] Undiagnosed new problem with uncertain prognosis? @ -[No] Drug Therapy requiring intensive monitoring for toxicity (Heparin, Nitro, Insulin, Cardizem)? @ -[No] Were any procedures done? @ -[No] Diagnosis/symptom? @ -[default] Acute, or Chronic, or Acute on Chronic? @ -[default] Uncomplicated (without systemic symptoms) or Complicated (systemic symptoms)? @ -[default] Side effects of treatment? @ -[No] Exacerbation, Progression, or Severe Exacerbation? @ -[No] Poses a threat to life or bodily function? How? (Chest pain, [place], [place], pneumonia, PE, COPD, DKA, ARF, appy, cholecystitis, CVA, Diverticulitis, Homicidal, Suicid al, threat to staff... and all critical care pts) @ -[No] - Lab Data Result diagrams: 01/18/23 00:37 01/18/23 00:37 Lab Results 01/18/23 01/18/23 01/18/23 Range/Units 00:37 00:37 00:37 WBC 13.4 H (3.8-10.6) k/uL RBC 5.46 H (3.80-5.40) m/uL Hgb 15.1 (11.4-16.0) gm/dL Hct 46.1 H (34.0-46.0) % MCV 84.5 (80.0-100.0) fL MCH 27.7 (25.0-35.0) pg MCHC 32.8 (31.0-37.0) g/dL RDW 13.2 (11.5-15.5) % Plt Count 237 (150-450) k/uL MPV 8.9 Neutrophils % 83 % Lymphocytes % 12 % Monocytes % 3 % Eosinophils % 1 % Basophils % 0 % Neutrophils # 11.1 H (1.3-7.7) k/uL Lymphocytes # 1.6 (1.0-4.8) k/uL Monocytes # 0.4 (0-1.0) k/uL Eosinophils # 0.1 (0-0.7) k/uL Basophils # 0.0 (0-0.2) k/uL Sodium 134 L (137-145) mmol/L Potassium 4.5 (3.5-5.1) mmol/L Chloride 99 (98-107) mmol/L Carbon Dioxide 20 L (22-30) mmol/L Anion Gap 15 mmol/L BUN 15 (7-17) mg/dL Creatinine 0.65 (0.52-1.04) mg/dL Est GFR (CKD-EPI)AfAm >90 (>60 ml/min/1.73 sqM) Est GFR (CKD-EPI)NonAf 83 (>60 ml/min/1.73 sqM) Glucose 105 H (74-99) mg/dL Lactic Ac Sepsis Rflx Plasma Lactic Acid Adolfo 2.3 H* (0.7-2.0) mmol/L Calcium 10.3 H (8.4-10.2) mg/dL Total Bilirubin 0.9 (0.2-1.3) mg/dL AST 23 (14-36) U/L ALT 20 (4-34) U/L Alkaline Phosphatase 69 (38-126) U/L Troponin I (0.000-0.034) ng/mL Total Protein 7.5 (6.3-8.2) g/dL Albumin 4.5 (3.5-5.0) g/dL Amylase 43 (30-110) U/L Lipase 76 (23-300) U/L Urine Color Urine Appearance (Clear) Urine pH (5.0-8.0) Ur Specific [place] (1.001-1.035) Urine Protein (Negative) Urine Glucose (UA) (Negative) Urine Ketones (Negative) Urine Blood (Negative) Urine Nitrite (Negative) Urine Bilirubin (Negative) Urine Urobilinogen (<2.0) mg/dL Ur Leukocyte Esterase (Negative) Urine RBC (0-5) /hpf Urine WBC (0-5) /hpf Ur Squamous Epith Cells (0-4) /hpf Hyaline Casts (0-2) /lpf Urine Mucus (None) /hpf 01/18/23 01/18/23 01/18/23 Range/Units 00:37 01:04 01:19 WBC (3.8-10.6) k/uL RBC (3.80-5.40) m/uL Hgb (11.4-16.0) gm/dL Hct (34.0-46.0) % MCV (80.0-100.0) fL MCH (25.0-35.0) pg MCHC (31.0-37.0) g/dL RDW (11.5-15.5) % Plt Count (150-450) k/uL MPV Neutrophils % % Lymphocytes % % Monocytes % % Eosinophils % % Basophils % % Neutrophils # (1.3-7.7) k/uL Lymphocytes # (1.0-4.8) k/uL Monocytes # (0-1.0) k/uL Eosinophils # (0-0.7) k/uL Basophils # (0-0.2) k/uL Sodium (137-145) mmol/L Potassium (3.5-5.1) mmol/L Chloride (98-107) mmol/L Carbon Dioxide (22-30) mmol/L Anion Gap mmol/L BUN (7-17) mg/dL Creatinine (0.52-1.04) mg/dL Est GFR (CKD-EPI)AfAm (>60 ml/min/1.73 sqM) Est GFR (CKD-EPI)NonAf (>60 ml/min/1.73 sqM) Glucose (74-99) mg/dL Lactic Ac Sepsis Rflx Y Plasma Lactic Acid Adolfo (0.7-2.0) mmol/L Calcium (8.4-10.2) mg/dL Total Bilirubin (0.2-1.3) mg/dL AST (14-36) U/L ALT (4-34) U/L Alkaline Phosphatase (38-126) U/L Troponin I <0.012 (0.000-0.034) ng/mL Total Protein (6.3-8.2) g/dL Albumin (3.5-5.0) g/dL Amylase (30-110) U/L Lipase (23-300) U/L Urine Color Light Yellow Urine Appearance Cloudy H (Clear) Urine pH 7.5 (5.0-8.0) Ur Specific [place] 1.006 (1.001-1.035) Urine Protein Negative (Negative) Urine Glucose (UA) Negative (Negative) Urine Ketones 1+ H (Negative) Urine Blood Negative (Negative) Urine Nitrite Negative (Negative) Urine Bilirubin Negative (Negative) Urine Urobilinogen <2.0 (<2.0) mg/dL Ur Leukocyte Esterase Negative (Negative) Urine RBC 121 H (0-5) /hpf Urine WBC 31 H (0-5) /hpf Ur Squamous Epith Cells <1 (0-4) /hpf Hyaline Casts 4 H (0-2) /lpf Urine Mucus Rare H (None) /hpf 01/18/23 Range/Units 03:27 WBC (3.8-10.6) k/uL RBC (3.80-5.40) m/uL Hgb (11.4-16.0) gm/dL Hct (34.0-46.0) % MCV (80.0-100.0) fL MCH (25.0-35.0) pg MCHC (31.0-37.0) g/dL RDW (11.5-15.5) % Plt Count (150-450) k/uL MPV Neutrophils % % Lymphocytes % % Monocytes % % Eosinophils % % Basophils % % Neutrophils # (1.3-7.7) k/uL Lymphocytes # (1.0-4.8) k/uL Monocytes # (0-1.0) k/uL Eosinophils # (0-0.7) k/uL Basophils # (0-0.2) k/uL Sodium (137-145) mmol/L Potassium (3.5-5.1) mmol/L Chloride (98-107) mmol/L Carbon Dioxide (22-30) mmol/L Anion Gap mmol/L BUN (7-17) mg/dL Creatinine (0.52-1.04) mg/dL Est GFR (CKD-EPI)AfAm (>60 ml/min/1.73 sqM) Est GFR (CKD-EPI)NonAf (>60 ml/min/1.73 sqM) Glucose (74-99) mg/dL Lactic Ac Sepsis Rflx Plasma Lactic Acid Adolfo 0.8 (0.7-2.0) mmol/L Calcium (8.4-10.2) mg/dL Total Bilirubin (0.2-1.3) mg/dL AST (14-36) U/L ALT (4-34) U/L Alkaline Phosphatase (38-126) U/L Troponin I (0.000-0.034) ng/mL Total Protein (6.3-8.2) g/dL Albumin (3.5-5.0) g/dL Amylase (30-110) U/L Lipase (23-300) U/L Urine Color Urine Appearance (Clear) Urine pH (5.0-8.0) Ur Specific [place] (1.001-1.035) Urine Protein (Negative) Urine Glucose (UA) (Negative) Urine Ketones (Negative) Urine Blood (Negative) Urine Nitrite (Negative) Urine Bilirubin (Negative) Urine Urobilinogen (<2.0) mg/dL Ur Leukocyte Esterase (Negative) Urine RBC (0-5) /hpf Urine WBC (0-5) /hpf Ur Squamous Epith Cells (0-4) /hpf Hyaline Casts (0-2) /lpf Urine Mucus (None) /hpf - EKG Data -: EKG Interpreted by Me EKG Comments: EKG interpreted by me shows sinus rhythm with ventricular rate of 73, [place] interval 0.157, QRS 0.81, QTC 0.414 Disposition Clinical Impression: Diverticulitis Disposition: HOME SELF-CARE Condition: Good Prescriptions: Amoxic-Pot Clav 875-125Mg [Augmentin 875-125] 1 tab PO Q12HR 1 Days #14 tab Is patient prescribed a controlled substance at d/c from ED?: No Referrals: Chandrakant Dee MD [Primary Care Provider] - 1-2 days
[2023-01-18 00:44] LABS: Basophils % (A) 0 %; Eosinophils # (A) 0.1 k/uL (0-0.7); Eosinophils % (A) 1 %; HCT 46.1 % (34.0-46.0); HGB 15.1 gm/dL (11.4-16.0); Lymphocytes # (A) 1.6 k/uL (1.0-4.8); Lymphocytes % (A) 12 %; MCH 27.7 pg (25.0-35.0); MCHC 32.8 g/dL (31.0-37.0); MCV 84.5 fL (80.0-100.0); Mean Platelet Volume 8.9; Monocytes # (A) 0.4 k/uL (0-1.0); Monocytes % (A) 3 %; Neutrophils # (A) 11.1 k/uL (1.3-7.7); Neutrophils % (A) 83 %; Platelet Count 237 k/uL (150-450); RBC 5.46 m/uL (3.80-5.40); RDW 13.2 % (11.5-15.5); WBC 13.4 k/uL (3.8-10.6)
[2023-01-18 00:55] LABS: ALT 20 U/L (4-34); AST 23 U/L (14-36); African American GFR (CKD) >90 (>60 ml/min/1.73 sqM); Albumin 4.5 g/dL (3.5-5.0); Alkaline Phosphatase 69 U/L (38-126); Amylase 43 U/L (30-110); Anion Gap 15 mmol/L; Blood Urea Nitrogen 15 mg/dL (7-17); Calcium 10.3 mg/dL (8.4-10.2); Carbon Dioxide 20 mmol/L (22-30); Chloride 99 mmol/L (98-107); Glucose 105 mg/dL (74-99); Lipase 76 U/L (23-300); Non-African American GFR(CKD) 83 (>60 ml/min/1.73 sqM); Potassium 4.5 mmol/L (3.5-5.1); Sodium 134 mmol/L (137-145); Total Bilirubin 0.9 mg/dL (0.2-1.3); Total Protein 7.5 g/dL (6.3-8.2)
[2023-01-18 01:50] LABS: Appearance,Urine Cloudy (Clear); Bilirubin,Urine Negative (Negative); Blood,Urine Negative (Negative); Color,Urine Light Yellow; Glucose,Urine (UA) Negative (Negative); Hyaline Casts,Urine 4 /lpf (0-2); Ketones,Urine 1+ (Negative); Leukocyte Esterase,Urine Negative (Negative); Mucus,Urine Rare /hpf; Nitrite,Urine Negative (Negative); PH, Urine 7.5 (5.0-8.0); Protein,Urine Negative (Negative); RBC,Urine 121 /hpf (0-5); Specific Gravity,Urine 1.006 (1.001-1.035); Squamous Epithelial Cell,Urine <1 /hpf (0-4); Urobilinogen,Urine <2.0 mg/dL (<2.0); WBC,Urine 31 /hpf (0-5)
--- NOTE | 2023-01-18 06:57 | CT ---
EXAM: CT Abdomen and Pelvis Without Intravenous Contrast CLINICAL HISTORY: Left-sided abdominal pain. TECHNIQUE: Axial computed tomography images of the abdomen and pelvis without intravenous contrast. CTDI is 22.9 mGy and DLP is 1357.4 mGy-cm. This CT exam was performed using one or more of the following dose reduction techniques: automated exposure control, adjustment of the mA and/or kV according to patient size, and/or use of iterative reconstruction technique. COMPARISON: No relevant prior studies available. FINDINGS: Lung bases: Unremarkable. No mass. No consolidation. ABDOMEN: Liver: Unremarkable. Gallbladder and bile ducts: Unremarkable. No calcified stones. No ductal dilation. Pancreas: Unremarkable. No ductal dilation. Spleen: Unremarkable. No splenomegaly. Adrenals: Unremarkable. No mass. Kidneys and ureters: Nonobstructing calculus seen within the right renal collecting system. There is no evidence of acute obstructive uropathy. Stomach and bowel: Paracolic infiltrative changes are seen regional to the distal descending and proximal sigmoid colon, with paracolic stranding as well as trace fluid within the inferior left paracolic gutter. There is colonic diverticulosis. Findings may be associated with an acute diverticulitis. No extraluminal gas or loculated paracolic fluid collection. There is focal concentric wall thickening and luminal narrowing within the proximal sigmoid colon. No evidence of small bowel obstruction or wall thickening. PELVIS: Appendix: No findings to suggest acute appendicitis. Bladder: Unremarkable. No stones. Reproductive: Status post hysterectomy. ABDOMEN and PELVIS: Intraperitoneal space: Unremarkable. No free air. No significant fluid collection. Bones/joints: No acute fracture. No dislocation. Soft tissues: Unremarkable. Vasculature: Unremarkable. No abdominal aortic aneurysm. Lymph nodes: Unremarkable. No enlarged lymph nodes. IMPRESSION: Paracolic infiltrative changes regional to the distal descending and proximal sigmoid colon, most likely associated with an acute diverticulitis at this site. No extraluminal gas or loculated paracolic fluid collection. Mild concentric wall thickening and luminal narrowing seen in the proximal sigmoid colon, most likely due to focal colonic under distention or stricture, though recommend correlation with most recent colonoscopy to exclude underlying infiltrating neoplasm.
[2023-01-18] MEDS ORDERED: AMOXIC-POT CLAV 875-125MG 1 EACH TAB PO STA (07:49)
[2023-01-18] MEDS ORDERED: PEG 3350 (236 GM/BTL) + LYTES 4,000 ML BOTTLE PO ONE (08:30)
[2023-01-18 08:48] VITALS: BP 150/78; PULSE 80; RESP 18
== END 2023-01-18 08:48 | disposition home or self-care (01) ==
LOC: EC 23:51
DX: K57.92 Diverticulitis of intestine, part unspecified, without perforation or abscess without bleeding (principal); K21.9 Gastro-esophageal reflux disease without esophagitis; I10 Essential (primary) hypertension; M19.90 Unspecified osteoarthritis, unspecified site; F41.9 Anxiety disorder, unspecified; Z79.1 Long term (current) use of non-steroidal anti-inflammatories (NSAID); Z79.899 Other long term (current) drug therapy; Z91.041 Radiographic dye allergy status; Z88.2 Allergy status to sulfonamides; Z88.1 Allergy status to other antibiotic agents
CPT/HCPCS: 36415; 74176; 80053; 81001; 82150; 83605; 83690; 84484; 85025; 93005; 96360; 99284

== ENCOUNTER 2023-03-28 10:31 | Day surgery (SDC) | payer MEDICARE ==
[2023-03-28] MEDS ORDERED: LACTATED RINGERS 1,000 ML IV SCH (10:44)
[2023-03-28 11:03] VITALS: TEMP 98.9
[2023-03-28] MEDS ORDERED: PROPOFOL 10 MG/ML 20 ML VIAL IV ONE (11:50)
--- NOTE | 2023-03-28 12:07 | P.PCN ---
Date of Procedure: 03/28/23 Procedure(s) Performed: BRIEF HISTORY: Patient is a 82-year-old pleasant white for scheduled for an elective colonoscopy as a part of screening for colon cancer. PROCEDURE PERFORMED: Colonoscopy. PREOPERATIVE DIAGNOSIS: Screening for colon cancer. IV sedation per Anesthesia. PROCEDURE: After informed consent was obtained, the patient, was brought into the endoscopy unit. IV sedation was administered by Anesthesia under continuous monitoring. Digital rectal examination was normal. Initially the Olympus CF-160 flexible video colonoscope was then inserted in the rectum, gradually advanced into the cecum without any difficulty. Careful examination was performed as the scope was gradually being withdrawn. Ileocecal valve and the appendiceal orifice were visualized and appeared normal. Prep was excellent. Mucosa of the cecum, ascending colon, transverse colon, descending colon, sigmoid colon, and rectum appeared normal. Scattered similar diverticulosis. Retroflexion was performed in the rectum and grade 2 internal were seen. The patient tolerated the procedure well. IMPRESSION: Normal-appearing colon from rectum to cecum with no evidence of colorectal neoplasia . Scattered sigmoid diverticula Small internal hemorrhoids RECOMMENDATIONS: Findings of this examination were discussed with the patient as well as a family. She was advised to be a high-fiber diet, take fiber supplements a regular basis and avoid straining and constipation..
[2023-03-28 12:26] VITALS: RESP 20
[2023-03-28 12:35] VITALS: BP 153/97; PULSE 64
== END 2023-03-28 12:49 | disposition home or self-care (01) ==
LOC: ORWHC2ENDO 10:31
PROVIDERS: ATTEND Internal Medicine Gastroenterology
DX: Z12.11 Encounter for screening for malignant neoplasm of colon (principal); K57.30 Diverticulosis of large intestine without perforation or abscess without bleeding; I10 Essential (primary) hypertension; K64.8 Other hemorrhoids; K21.9 Gastro-esophageal reflux disease without esophagitis; Z98.890 Other specified postprocedural states; Z79.899 Other long term (current) drug therapy
CPT/HCPCS: J2704; G0121

== ENCOUNTER → 2023-04-18 | Outpatient (CLI) | payer MEDICARE ==
--- NOTE | 2023-04-18 14:02 | BD ---
EXAMINATION TYPE: Axial Bone Density DATE OF EXAM: 04/18/2023 CLINICAL HISTORY: 82 years old Female. ICD-10 CODE: M85.851 OTH DISRD OF BONE DENSITY AND STRUCTURE, R Height: 61 Weight: 208.7 FRAX RISK QUESTIONS: Alcohol (3 or more units per day): no Family History (Parent hip fracture): no Glucocorticoids (More than 3mos): no (Ex: prednisone, prednisolone, methylprednisolone, dexamethasone, and hydrocortisone). History of Fracture in Adulthood: yes Secondary Osteoporosis: 1. Type 1 Diabetes: no 2. Hyperthyroidism: no 3. Menopause before 45: no 4. Malnutrition: no 5. Chronic liver disease: no Rheumatoid Arthritis: no Current Tobacco Use: no RISK FACTORS HISTORY OF: Surgery to Spine/Hip(right/left)/Wrist (right/left): no Family History of Osteoporosis: no Active: no Diet low in dairy products/other sources of calcium: no Postmenopausal woman: yes Lost more than 2 inches in height since high school: no MEDICATIONS: Additional History: EXAM MEASUREMENTS: Bone mineral densitometry was performed using the [employer] System. Bone mineral density as measured about the Lumbar spine is: ----- L1-L4(G/cm2): 1.103 T Score Values are as follows: ----- L1: 0.1 ----- L2: -0.8 ----- L3: -1.0 ----- L4: -1.1 ----- L1-L4: -0.6 Z Score Values are as follows: ----- L1: 1.0 ----- L2: 0.1 ----- L3: -0.1 ----- L4: -0.2 ----- L1-L4: 0.2 Bone mineral density has: increased 3.9 % since study of: 04.09.2004 Bone mineral density about the R hip (g/cm2): 0.767 Bone mineral density about the L hip (g/cm2): 0.857 T Score values are as follows: -----R Neck: -1.8 -----L Neck: -1.9 -----R Total: -0.2 -----L Total: -0.5 Z Score values are as follows: -----R Neck: -1.7 -----L Neck: -1.2 -----R Total: -0.1 -----L Total: 0.2 Bone mineral density has: decreased -21.5 % since study of: 04.09.2004 FRAX%s: The graph provided illustrates a 19.2% chance for a major osteoporotic fx and a 4.8% chance f or the hips probability for fx in 10 years time. IMPRESSION: Osteopenia (T Score between -2.5 and -1). There is slightly increased risk of fracture and the patient may be considered for treatment. Re-Screen 2-5 years. NOTE: T-SCORE=SD OF THE YOUNG ADULT MEAN.
== END | disposition home or self-care (01) ==
LOC: RADBDWWP 13:18
PROVIDERS: ATTEND Internal Medicine
DX: M85.89 Other specified disorders of bone density and structure, multiple sites (principal); Z78.0 Asymptomatic menopausal state
CPT/HCPCS: 77080

== ENCOUNTER → 2025-01-03 | Outpatient (CLI) | payer MEDICARE ==
--- NOTE | 2025-01-03 16:36 | US ---
EXAMINATION TYPE: US carotid duplex BILAT DATE OF EXAM: 01/03/2025 COMPARISON: NONE CLINICAL INDICATION: Female, 84 years old with history of [id number] CAROTID STENOSIS BILATERAL; stenosis Additional History: I65.- Occlusion/stenosis of specified precerebral artery, specified laterality TECHNIQUE: Grayscale, color Doppler and spectral Doppler evaluation of the bilateral carotid systems and vertebral arteries. Indirect Doppler criteria was utilized. FINDINGS: EXAM MEASUREMENTS: RIGHT: Peak Systolic Velocity (PSV) cm/sec ----- Right CCA: 72.0 ----- Right ICA: 77.1 ----- Right ECA: 113.4 ICA/CCA ratio: 1.1 RIGHT: End Diastole cm/sec ----- Right CCA: 13.7 ----- Right ICA: 15.0 ----- Right ECA: 8.5 LEFT: Peak Systolic Velocity (PSV) cm/sec ----- Left CCA: 60.1 ----- Left ICA: 91.4 ----- Left ECA: 119.5 ICA/CCA ratio: 1.5 LEFT: End Diastole cm/sec ----- Left CCA: 12.8 ----- Left ICA: 24.1 ----- Left ECA: 9.4 VERTEBRALS (direction of flow): Right Vertebral: Antegrade Left Vertebral: Antegrade Rhythm: Normal ORTHOPEDIC PHYSICIAN NOTES: no plaque seen. No elevated velocities Color Doppler imaging shows patency with blood flow throughout the carotid artery. Spectral waveforms are within normal limits. IMPRESSION: Right: No hemodynamically significant stenosis. Left: No hemodynamically significant stenosis. Criteria for Assigning % of Stenosis / Diameter reduction (Estimation based on the indirect measurements of the internal carotid artery velocities (ICA PSV). 1. Normal (no stenosis)=ICA PSV < 180 cm/s: ratio < 2.0: ICA EDV<40 cm/s. 2. Less than 50% stenosis=ICA PSV < 180 cm/s: ratio < 2.0: ICA EDV<40 cm/s. 3. 50 to 69% stenosis=ICA PSV of 180 to 230 cm/s: ration 2.0 ? 4.0: ICA EDV 40-100 cm/s. PSV 125-180 cm/sec and ICA/CCA PSV Ratio ? 2.0 is also consistent with 50-69% stenosis 4. Greater than 70% stenosis to near occlusion= ICA PSV > 230 cm/s: ratio > 4.0: ICA EDV > 100 cm/s. 5. Near occlusion= ICA PSV velocities may be low or undetectable: variable ratio and ICA EDV. 6. Total occlusion=unable to detect flow. [facility], , 01/03/2025 4:33 PM
--- NOTE | 2025-01-04 07:33 | CA ---
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 67 - 155 / 56 - 104 cm??? LV Systolic Volume MOD BP 31.1 cm??? - 58 / 19 - 49 cm??? LV Ejection Fraction MOD BP 63.9 % >= 55 % LV Cardiac Index MOD BP 2292.2 cm???/min???m??? LV Diastolic Volume MOD 4C 85.0 cm??? LV Systolic Volume MOD 4C 27.4 cm??? LV Ejection Fraction MOD 4C 67.8 % LV Cardiac Index MOD 4C 2401.9 cm???/min???m??? LV Diastolic Length 4C 7.3 cm LV Systolic Length 4C 6.0 cm LV Diastolic Volume MOD 2C 83.8 cm??? LV Systolic Volume MOD 2C 33.2 cm??? LV Ejection Fraction MOD 2C 60.4 % LV Cardiac Index MOD 2C 2108.3 cm???/min???m??? LV Diastolic Length 2C 7.0 cm LV Systolic Length 2C 5.4 cm LA Volume 80.6 cm??? 18 - 58 / 22 - 52 cm??? LA Volume Index 38.6 cm???/m??? 16 - 28 cm???/m??? M-MODE Aortic Root Diameter MM 3.0 cm AV Cusp Separation MM 1.6 cm DOPPLER AV Peak Velocity 213.2 cm/s AV Peak Gradient 18.2 mmHg AV Mean Velocity 134.3 cm/s AV Mean Gradient 8.7 mmHg AV Velocity Time Integral 41.4 cm MV Area PHT 3.3 cm??? Mitral E Point Velocity 101.9 cm/s Mitral A Point Velocity 106.8 cm/s Mitral E to A Ratio 1.0 MV Deceleration Time 227.7 ms TR Peak Velocity 246.7 cm/s TR Peak Gradient 24.3 mmHg Right Ventricular Systolic Press 29.3 mmHg FINDINGS Left Ventricle Left ventricular ejection fraction is estimated at 55-60 %. Left ventricular cavity size normal. Left ventricular wall thickness normal.Normal left ventricular systolic function with no obvious regional wall motion abnormalities. Right Ventricle Mild right ventricular dilatation. Normal right ventricular size and function. Right Atrium Normal right atrial size. No right atrial thrombus or mass seen. Left Atrium Moderately increased left atrial volume. Mildly increased left atrial area. No left atrial thrombus or mass present. Mitral Valve Structurally normal mitral valve. No evidence for mitral valve prolapse. No mitral stenosis. Mild mitral regurgitation. Aortic Valve Trileaflet aortic valve. No aortic valve stenosis or regurgitation. Tricuspid Valve Structurally normal tricuspid valve. Mild tricuspid regurgitation. Pulmonic Valve Pulmonic valve not well visualized. No pulmonic regurgitation. Pericardium No pericardial effusion. Aorta Normal size aortic root and proximal ascending aorta. CONCLUSIONS 1. Normal left ventricular size and systolic function 2. Mild mitral and tricuspid regurgitation with no evidence of pulmonary hypertension Previewed by: Dr. Patricia Macias MD (Electronically Signed) Final Date: 04 January 2025 07:32
== END | disposition home or self-care (01) ==
LOC: RADUSWWP 15:48
PROVIDERS: ATTEND Internal Medicine
DX: I08.1 Rheumatic disorders of both mitral and tricuspid valves (principal); I65.23 Occlusion and stenosis of bilateral carotid arteries
CPT/HCPCS: 93306; 93880